=== PATIENT | male | born 1955 | race African-American/Black ===

== ENCOUNTER 2023-08-08 13:38 | Inpatient (IN) | payer MEDICAID, SELFPAY ==
--- NOTE | ~2023-08-08 | XR_ITS ---
EXAMINATION: PORTABLE CHEST 1 VIEW CLINICAL INFORMATION: pre-mri. COMPARISON: 11/19/2016. TECHNIQUE: Portable frontal view of the chest was obtained. FINDINGS: The lungs are hypoexpanded. No focal infiltrate, effusion, edema, or pneumothorax. Cardiac and mediastinal silhouettes are within normal limits for size. Degenerative changes in the spine and shoulders. No acute bony abnormality seen. XR/XR chest 1V IMPRESSION: No evidence of acute disease.
--- NOTE | ~2023-08-08 | CT_ITS ---
EXAMINATION: CT ABDOMEN AND PELVIS WITHOUT AND WITH CONTRAST CLINICAL INFORMATION: Abdominal pain COMPARISON: None available. TECHNIQUE: Multidetector volumetric imaging was performed of the abdomen and pelvis before and after the IV administration of 85 mL of Omnipaque 350 intravenous contrast. Sagittal and coronal reformatted images were obtained on the technologist's workstation. This CT examination was performed using dose optimization techniques as appropriate, variously including the following: *Automated exposure control *Adjustment of mA and/or kV according to patient size (this includes techniques or standardized protocols for targeted exams where dose is matched. FINDINGS: LUNG BASES: The visualized lung bases are unremarkable. LIVER, GALLBLADDER, AND BILIARY TREE: The liver is normal in size, shape, and attenuation. No focal hepatic lesion or biliary ductal dilatation is present. The gallbladder is unremarkable with no evidence of radiopaque gallstones, gallbladder wall thickening, or obvious pericholecystic inflammatory changes. PANCREAS: There is a hypoattenuating lesion along the pancreatic neck measuring 2 cm. This measures 6 Hounsfield units, consistent with a cyst as no enhancement is seen. There is no pancreatic ductal dilatation. No definite additional pancreatic lesions, though motion does limit the evaluation. No convincing solid mass. No adjacent fluid collection or inflammation. SPLEEN: Unremarkable ADRENAL GLANDS: Unremarkable KIDNEYS AND URETERS: The kidneys are normal in size, shape, and attenuation. No hydronephrosis or hydroureter. Multiple bilateral renal calculi. On the right there are at least 4 calculi present measuring up to 0.3 cm at the upper pole, on the left there are 2 dominant calculi, the largest measuring 0.4 cm, 7 cm from the posterior axillary line. BLADDER: Unremarkable GASTROINTESTINAL TRACT: The stomach is unremarkable. Normal caliber small bowel. No obstruction. No colonic wall thickening or acute inflammation. Normal appendix. ABDOMINAL WALL: Small fat-containing left inguinal hernia. LYMPH NODES: Normal VASCULAR: Normal caliber aorta with mild atherosclerotic calcification throughout. There is mild to moderate stenosis at the origin of the celiac axis. PELVIC VISCERA: Enlarged prostate measures 5.5 cm transverse. The seminal vesicles are unremarkable. OSSEOUS STRUCTURES: No acute or suspicious osseous abnormality. Mild degenerative change throughout the spine. Disc space narrowing at L4-L5 with vacuum disc phenomenon and endplate osteophytes present. CT/CT abdomen pelvis wo/w IV con IMPRESSION: Motion limited evaluation. 1. No acute findings in the abdomen or pelvis. No inflammatory changes. 2. 2 cm cystic lesion at the pancreatic neck. No suspicious features. This may represent an IPMN. Recommend follow-up imaging in one year. 3. Multiple bilateral nonobstructing renal calculi. 4. Prostatomegaly. 5. 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 Fleischner guidelines were followed.
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
--- NOTE | ~2023-08-08 | MR_ITS ---
EXAMINATION: MR BRAIN WITH AND WITHOUT CONTRAST CLINICAL INFORMATION: Worsening encephalopathy, ?CADASIL COMPARISON: CT head 08/08/2023 TECHNIQUE: MRI of the brain was obtained using routine sequences before and following administration of intravenous contrast. A total of 7.5 mL of Gadavist was administered intravenously. FINDINGS: No acute infarct. No extra-axial fluid collection. Moderate global cerebral volume loss. There is diffuse thinning and patchy gliosis of the corpus callosum. Extensive patchy and confluent T2 FLAIR hyperintense foci in the subcortical and periventricular white matter with involvement of the anterior temporal lobes and some involvement of the external capsules, nonspecific but and again may reflect sequela of advanced chronic microangiopathy versus small vessel vasculopathy/vasculitis, including CADASIL. There is also mild T2 signal change in the brainstem. Chronic lacunar infarcts in the left cerebellum, right thalamus, and right santana radiata. Several foci of magnetic susceptibility artifact within the right external capsule, left temporal lobe, and right anterior mesial temporal lobe, presumed chronic microhemorrhages. No gross pathologic intracranial enhancement within limitations of significant motion artifact. No significant mass effect or herniation pattern. The intracranial dural venous sinus and arterial flow voids are preserved. The orbits are grossly unremarkable. The paranasal sinuses and mastoids are well aerated. Partially imaged cervical spondylosis. MR/MR head/brain wo/w con IMPRESSION: No acute intracranial process. Extensive predominantly supratentorial white matter disease as described above which may reflect advanced chronic microangiopathy versus small vessel vasculopathy/vasculitis, such as CADASIL given anterior temporal lobe and to a lesser extent external capsule involvement. Other white matter processes, such as chronic demyelinating disease, not excluded and can be correlated clinically. Chronic lacunar infarcts in the left cerebellum, right thalamus, and right santana radiata. Moderate global cerebral volume loss. Diffuse thinning and patchy gliosis of the corpus callosum. A few supratentorial chronic microhemorrhages.
[2023-08-08 15:12] VITALS: BP 120/78; PULSE 83; RESP 16; TEMP 37; O2SAT 97; BMI 25.8
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
[2023-08-08 15:30] VITALS: BP 128/69; PULSE 82; RESP 16; TEMP 36.7; O2SAT 98
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
--- NOTE | 2023-08-08 15:53 | PC.NURSE ---
no obvious trauma noted to face or head on observation. pts appears weak overall, hard time getting changed, flat affect noted. pt placed on bedside monitoring coordinator, NSR. pt denies pain or nausea at this time.
--- NOTE | 2023-08-08 16:24 | PC.NURSE ---
Pt to CT scan
[2023-08-08 17:52] LABS: MANUAL DIFF FLAG NO
[2023-08-08] MEDS: 0.9 % Sodium Chloride 1,000 ML 999 ML IV (17:54)
[2023-08-08 17:57] VITALS: BP 119/70; PULSE 78; RESP 16; TEMP 36.8; O2SAT 98
[2023-08-08 18:07] LABS: Basophils Percent Auto 0.1 % (0-2); Eosinophils Absolute Auto 0.1 X10*3/uL (0.0-0.4); Eosinophils Percent Auto 1.4 % (0-4); Hematocrit 44.8 % (42.0-52.0); Hemoglobin 15.3 g/dl (14.0-18.0); Imm Gran Abs Auto 0.09 X10*3/uL (0.00-0.03); Imm Gran Pct Auto 0.9 % (0.0-0.4); Lymphocytes Absolute Auto 1.6 X10*3/uL (1.2-4.9); Lymphocytes Percent Auto 16.1 % (20-40); Mean Corpuscular HGB Conc 34.2 g/dl (31.0-36.0); Mean Corpuscular Hemoglobin 30.5 pg (27.0-33.0); Mean Corpuscular Volume 89.2 fL (80.0-98.0); Mean Platelet Volume 9.9 fL (9.4-12.4); Monocytes Absolute Auto 0.8 X10*3/uL (0.1-1.2); Monocytes Percent Auto 8.1 % (2-11); Neutrophils Absolute Auto 7.1 x10*3/uL (2.0-8.3); Neutrophils Percent Auto 73.4 % (45-73); Platelet Count 211 X10*3/uL (160-400); Red Blood Count 5.02 X10*6/uL (4.60-5.80); Red Cell Distribution Width 12.3 % (11.0-16.0); White Blood Count 9.7 X10*3/uL (4.8-10.8)
[2023-08-08 18:08] LABS: Ammonia 20 umol/L (13-55)
[2023-08-08 18:10] LABS: Alanine Aminotransferase 55 U/L (0-40); Albumin Level 3.5 g/dL (3.5-5.0); Alkaline Phosphatase 89 U/L (39-117); Anion Gap 13 (12-20); Aspartate Amino Transferase 35 U/L (5-37); Bilirubin Total 0.5 mg/dL (0.0-1.0); Blood Urea Nitrogen 25 mg/dL (9-16); Calcium 9.2 mg/dL (8.4-10.2); Carbon Dioxide 28 mmol/L (22-29); Chloride 97 mmol/L (96-108); Creatinine Clr Calc Pharmacy 67.6; Estimated Glomerular Filt Rate > 60; Glucose Random 225 mg/dL (60-115); Lipase 13 U/L (8-78); Potassium 4.8 mmol/L (3.3-5.1); Sodium 133 mmol/L (135-145)
[2023-08-08 19:32] VITALS: BP 121/64; PULSE 83; RESP 16; TEMP 37.1; O2SAT 97
--- NOTE | 2023-08-08 19:33 | MHC.EDTECH ---
This tech took over care of patient at 1900,hourly rounds and vitals completed,patient was repositioned to comfort,attempted to get a urine and patient is unable to at this time,call murphy in reach
--- NOTE | 2023-08-08 19:58 | MHC.EDTECH ---
Patient was incont.of a large amount of urine,patient was being cleaned and patient voided with the assist of this tech in the urinal,patient voided 300MLS,urine sample collected and sent to lab. Patient was cleaned and hoang-care giving, bed linen was changed,[place] Cath placed due to patient being incot.to keep patient clean and dry,RN is aware. Belonging list completed and copy placed in chart. Call murphy in reach
[2023-08-08 20:08] LABS: Appearance Urine Clear; Color Urine Yellow; Glucose Urine UA 250 mg/dL (Negative); Leukocyte Esterase Urine Negative (Negative); Nitrite Urine Negative (Negative); PH 5.5 (5.0-9.0); Specific Gravity - Urine 1.025 (1.005-1.025); Urine Blood Negative (Negative); Urine Ketones Negative (Negative); Urine Protein Trace mg/dL (Neg-Trace)
--- NOTE | 2023-08-08 21:05 | PHA.MEDREC ---
Pharmacy Consult ? Medication Reconciliation Pharmacy has completed the medication reconciliation. Patient's family had rx bottles from [place]. Melinda Lundberg, MelyD
--- NOTE | 2023-08-08 21:46 | MHC.EDTECH ---
Hourly rounds completed,patient is eating a ham sandwich at this time and daughter at bedside
[2023-08-08] MEDS: 0.9 % Sodium Chloride 1,000 ML 125 ML IVCONT (21:51)
[2023-08-08] MEDS: Thiamine HCL 100 MG in 0.9 % Sodium Chloride 100 ML 202 MG IV (21:54)
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
[2023-08-08 22:09] VITALS: BP 135/69; PULSE 84; RESP 18; TEMP 37.5; O2SAT 96
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
[2023-08-08 23:25] VITALS: BP 119/63; PULSE 81; RESP 18; TEMP 37.4; O2SAT 96
--- NOTE | 2023-08-08 23:26 | PC.NURSE ---
assumed care of pt
--- NOTE | 2023-08-08 23:26 | MHC.EDTECH ---
Patient took [place] cath off and was incot. of a large amount of urine,and a large amount of soft brown stool,patient was cleaned,hoang-care giving and bed linen changed. Hourly rounds and vitals completed. Call murphy in reach
[2023-08-09 01:57] VITALS: BP 135/73; PULSE 76; RESP 16; TEMP 37.3; O2SAT 96
--- NOTE | 2023-08-09 02:13 | MHC.EDTECH ---
Patient was incont. of a large amount of urine,cleaned and hoang-care giving, this tech saw 2 open areas on bottom,RN was at bedside and dressing was applied to area.Patient repositioned to comfort, hourly rounds and vitals completed. Call murphy in reach
--- NOTE | 2023-08-09 04:08 | MHC.EDTECH ---
Hourly rounds completed,patient is clean and dry at this time.
[2023-08-09 04:57] LABS: MANUAL DIFF FLAG NO
[2023-08-09 05:07] LABS: Basophils Percent Auto 0.2 % (0-2); Eosinophils Absolute Auto 0.2 X10*3/uL (0.0-0.4); Hematocrit 40.2 % (42.0-52.0); Hemoglobin 13.6 g/dl (14.0-18.0); Imm Gran Abs Auto 0.02 X10*3/uL (0.00-0.03); Imm Gran Pct Auto 0.2 % (0.0-0.4); Lymphocytes Absolute Auto 1.7 X10*3/uL (1.2-4.9); Lymphocytes Percent Auto 19.2 % (20-40); Mean Corpuscular HGB Conc 33.8 g/dl (31.0-36.0); Mean Corpuscular Hemoglobin 30.2 pg (27.0-33.0); Mean Corpuscular Volume 89.3 fL (80.0-98.0); Mean Platelet Volume 10.3 fL (9.4-12.4); Monocytes Absolute Auto 0.8 X10*3/uL (0.1-1.2); Monocytes Percent Auto 9.2 % (2-11); Neutrophils Absolute Auto 6.1 x10*3/uL (2.0-8.3); Neutrophils Percent Auto 69.2 % (45-73); Platelet Count 194 X10*3/uL (160-400); Red Cell Distribution Width 12.1 % (11.0-16.0); White Blood Count 8.8 X10*3/uL (4.8-10.8)
[2023-08-09 05:20] LABS: Cholesterol 145 mg/dL (<200); HDL Cholesterol 31 mg/dL (>40); LDL Cholesterol Calculated 92 mg/dL (<100); Triglycerides 111 mg/dL (<150)
[2023-08-09 05:24] LABS: Alanine Aminotransferase 45 U/L (0-40); Albumin Level 3.1 g/dL (3.5-5.0); Alkaline Phosphatase 76 U/L (39-117); Anion Gap 11 (12-20); Aspartate Amino Transferase 29 U/L (5-37); Bilirubin Total 0.4 mg/dL (0.0-1.0); Blood Urea Nitrogen 21 mg/dL (9-16); Calcium 8.5 mg/dL (8.4-10.2); Carbon Dioxide 24 mmol/L (22-29); Chloride 103 mmol/L (96-108); Estimated Glomerular Filt Rate > 60; Glucose Random 182 mg/dL (60-115); Potassium 3.9 mmol/L (3.3-5.1); Sodium 134 mmol/L (135-145); Total Protein 6.1 g/dL (6.5-8.0)
[2023-08-09 05:27] LABS: Reflex LDLD? No
[2023-08-09 06:10] VITALS: BP 148/86; PULSE 73; RESP 18; TEMP 37.2; O2SAT 97
--- NOTE | 2023-08-09 06:12 | MHC.EDTECH ---
Hourly rounds and vitals completed,patient was incont. of a large amount of urine and a small amount of stool,patient was cleaned and hoang-care giving.call murphy in reach
--- NOTE | 2023-08-09 08:07 | P.CNHO_ITS ---
Subjective - Subjective Chief complaint: Leg pains Patient: new to practice Consult date: 08/09/23 Requesting Physician: Neema Ponce NP Primary Care Provider: None Physician HPI - Consult Narrative Reason for consult: Pancreatic lesion Narrative: Edmundo Chan is a 68 year old male who has been admitted to the hospital because of confusion and abnormal imaging in [place]. certified court interpreter was used for the interview, 2 family members were at his bedside. Patient was brought in by family members because progressive weakness, confusion and poor oral intake. Patient is able to answer some questions. He states that his only complaint is chronic leg pain. When specifically asked, he states that he has lost some weight. Apparently, patient was admitted to a hospital in [place] on 07/11/2023. At that time, he underwent a head CT and C-spine CT scan that showed no acute findings. 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 He was eventually discharged and was recommended to follow with primary care doctor an outpatient abdominal MRI for better characterization of the cystic lesion. He was hospitalized for about a month. Oncology Screenings - ECOG Performance Status ECOG Performance Status: 3 [facility] Medical History: Medical History (Last Reviewed 08/09/23 @ 11:15 by Mariajose Shankar, PT) BPH (benign prostatic hyperplasia) Dementia Diabetes mellitus Hypertension Pancreatic cancer Pancreatic lesion Surgical History: Surgical History (Last Reviewed 08/09/23 @ 11:15 by Mariajose Shankar, PT) History of hernia repair S/P right knee arthroscopy Social History: Social History Living Situation History: Household Members: Family Alcohol History: Unable to assess alcohol history related to: Unknown Tobacco History: Patient Tobacco Use Status: Tobacco use Unknown Occupation Assessmet: service: No Home Medications and Allergies Current Medications: Current Medications Acetaminophen (Acetaminophen 325 Mg Tablet) 650 mg PO Q6H PRN PRN Reason: Pain, Mild (Pain Scale 1-3) Aspirin (Aspirin 81 Mg Tab.Chew) 81 mg PO DAILY [facility] Atorvastatin Calcium (Atorvastatin Calcium 10 Mg Tablet) 10 mg PO DAILY [facility] Clopidogrel Bisulfate (Clopidogrel Bisulfate 75 Mg Tablet) 75 mg PO DAILY [facility] Dextrose (Dextrose 50 % 25 Gm/50 Ml Syringe) 25 gm IVPUSH Q15M PRN; Protocol PRN Reason: per Hypoglycemia Standing Ord. Glipizide (Glipizide 10 Mg Tablet) 10 mg PO BID [facility] Glucose (Glucose Gel 15 Gm Gel..Gram.) 15 gm PO Q15M PRN; Protocol PRN Reason: per Hypoglycemia Standing Ord. Heparin Sodium (Porcine) (Heparin Sodium,Porcine 5,000 Unit/Ml Vial) 5,000 unit SUBCUT Q8H [facility] Sodium Chloride (Ns) 1,000 mls @ 125 mls/hr IVCONT .Q8H [facility] Last Admin: 08/09/23 06:14 Dose: Not Given Insulin Human Lispro (Insulin Lispro 100 Unit/Ml 3 Ml Vial) 0 unit SUBCUT QIDACHS [facility]; Protocol Lisinopril (Lisinopril 10 Mg Tablet) 10 mg PO DAILY [facility]; Protocol Sodium Chloride (0.9 % Sodium Chloride Flush 3 Ml Syringe) 3 ml IVFLUSH QSHIFT [facility] Last Admin: 08/09/23 00:08 Dose: Not Given Tamsulosin HCl (Tamsulosin Hcl 0.4 Mg Capsule) 0.4 mg PO BEDTIME [facility] Home Medications Medication Instructions Recorded Confirmed Type aspirin 81 mg chewable tablet 81 mg PO DAILY 08/08/23 08/08/23 History atorvastatin 10 mg tablet 10 mg PO DAILY 08/08/23 08/08/23 History clopidogrel 75 mg tablet (Plavix) 75 mg PO DAILY 08/08/23 08/08/23 History glipizide 10 mg tablet 10 mg PO BID 08/08/23 08/08/23 History lisinopril 10 mg tablet 10 mg PO DAILY 08/08/23 08/08/23 History pioglitazone 15 mg tablet (Actos) 15 mg PO DAILY 08/08/23 08/08/23 History tamsulosin 0.4 mg capsule 0.4 mg PO BEDTIME 08/08/23 08/08/23 History Allergies Allergy/AdvReac Type Severity Reaction Status Date / Time No Known Allergies Allergy Verified 08/08/23 15:12 Physical Exam Vital signs: Vital Signs Temp 98.9 F 08/09/23 06:10 Pulse 73 08/09/23 06:10 Resp 18 08/09/23 06:10 BP 148/86 H 08/09/23 06:10 Pulse Ox 97 08/09/23 06:10 O2 Del Method Room Air 08/09/23 06:10 Intake & Output 08/08/23 08/09/23 08/09/23 18:59 06:59 18:59 Intake Total 1221 / 1221 Output Total Balance 1220 / 1220 Intake: Intake, Oral Amount 120 / 120 Intake, IV Amount 1101 / 1101 0.9 % Sodium Chloride 1,000 ml 1000 / 1000 @ 999 mls/hr IV .Q1H1M ONE Rx#: [id number] Thiamine HCL 100 mg In 0.9 % 101 / 101 Sodium Chloride 100 ml @ 202 mls/hr IV ONCE ONE Rx#: [id number] Output: Output, Stool Amount Other: Evening Snack % Eaten 100 Number of Incontinent Voids 2 Number of Bowel Movements 1 Last Bowel Movement 08/08/23 Stool Incontinent Stool Amount Small Stool Color Brown Stool Consistency Soft Weight 79.379 kg Weight 79.379 kg - Constitutional Present: no acute distress, thin - Routine HEENT Exam Head: Present: normal inspection Eye: Present: EOMI - Routine Neck Exam Absent: lymphadenopathy - Routine Respiratory Exam Present: CTAB - Routine Cardiovascular Exam Cardiovascular: Present: S1, S2 - Routine Abdominal Exam Present: soft Hem/Onc Consult Result - Labs CBC & Chem 7: 08/09/23 04:11 08/09/23 04:11 Labs: Short CBC 08/08/23 08/09/23 Range/Units 17:03 04:11 WBC 9.7 8.8 (4.8-10.8) X10*3/uL Hgb 15.3 13.6 L (14.0-18.0) g/dl Hct 44.8 40.2 L (42.0-52.0) % Plt Count 211 194 (160-400) X10*3/uL BMP 08/08/23 08/09/23 17:06 04:11 Sodium 133 L 134 L Potassium 4.8 3.9 Chloride 97 103 Carbon Dioxide 28 24 BUN 25 H 21 H Creatinine 1.03 0.82 Calcium 9.2 8.5 D Liver Function 08/08/23 08/09/23 Range/Units 17:06 04:11 Total Bilirubin 0.5 0.4 (0.0-1.0) mg/dL AST 35 29 (5-37) U/L ALT 55 H 45 H (0-40) U/L Alkaline Phosphatase 89 76 (39-117) U/L Albumin 3.5 3.1 L (3.5-5.0) g/dL Urine 08/08/23 Range/Units 19:50 Urine Color Yellow Urine Appearance Clear Urine pH 5.5 (5.0-9.0) Ur Specific [place] 1.025 (1.005-1.025) Urine Protein Trace (Neg-Trace) mg/dL Urine Glucose (UA) 250 H (Negative) mg/dL Assessment and Plan Patient Active problem list reviewed?: Yes (1) Pancreatic lesion Status: Acute Assessment and plan: 1. This is a 68-year-old male who was admitted for mental status changes and found to have pancreatic lesion on imaging. He has had abdominal CT scan in [place] that showed incidentally a cystic lesion in the pancreatic head favoring intraductal papillary mucinous neoplasm (IPMN). He was eventually discharged and was recommended to follow with primary care doctor an outpatient, abdominal MRI for better characterization of the cystic lesion. He was hospitalized for about a month. He is now being evaluated for confusion and memory loss. CT abdomen/pelvis with contrast performed on 08/09/2023, report is pending. If this confirms IPMN, this can be monitored. Further evaluation with EUS can be done as outpatient. I thank you for the consult. - Time Spent With Patient Time Spent with Patient (in minutes): 15
[2023-08-09 08:11] LABS: Glucose, Whole Blood 152 mg/dL (60-115)
[2023-08-09 08:28] VITALS: BP 151/78; PULSE 76; RESP 16; TEMP 37.2; O2SAT 98
[2023-08-09 08:33] LABS: Glucose, Whole Blood 152 mg/dL (60-115)
[2023-08-09] MEDS: Aspirin 81 MG TAB.CHEW PO (09:07)
[2023-08-09] MEDS: Clopidogrel Bisulfate 75 MG TABLET PO (09:07)
[2023-08-09] MEDS: Atorvastatin Calcium 10 MG TABLET PO (09:07)
[2023-08-09] MEDS: Insulin Lispro 100 UNIT/ML 3 ML VIAL SUBCUT ×3 (09:07→21:32)
[2023-08-09] MEDS: Heparin Sodium,Porcine 5,000 UNIT/ML VIAL 5000 UNIT SUBCUT ×2 (09:08→17:13)
[2023-08-09] MEDS: lisinopriL 10 MG TABLET PO (09:08)
[2023-08-09] MEDS: 0.9 % Sodium Chloride Flush 3 ML SYRINGE IVFLUSH ×2 (09:08→21:35)
[2023-08-09 09:48] LABS: Lipase 14 U/L (8-78)
[2023-08-09 10:01] VITALS: BP 123/70; PULSE 78; RESP 16; TEMP 36.7; O2SAT 98
--- NOTE | 2023-08-09 10:28 | HO.WOUND ---
Wound Consult: Initial 68yr old?M admitted to [facility] [place] - See progress notes and H&P for detailed history.? Wound consult placed for sacral wound POA.? Patient agreeable to assessment and photo documentation. Per discussion and chart review patient was wearing briefs for period of time - likely impacting wound development. Sacrum Etiology: Unstageable Pressure Injury ??Present on Admission Measurements: 2cm x 2cm x 0.2cm with intact skin bridge inplace Wound Bed: adherent pale yellow slough attached to wound bed with granulation buds noted Drainage / Odor: None noted at the time of my assessment Edges: ? well defined [place] wound: Dark blanchable hyperpigmentation - along wiht MARSI (Medical Adhesive Related Skin Injury)?see photo - No Induration, Fluctuance or Warmth noted Pain: did not respond to assessment Goals of Treatment: ? Triad to autolytic debridement and foam to aid in off loading and pressure redistribution Recommendations: 1. Turn and Reposition every 2 hours and as needed for patient comfort.? Use pillows or wedges to support off loading positions. 2. Off Load all bony prominences with use of pillows and heel boots if needed.? Apply Preventative foams where needed. ? 3. Monitor for incontinence and moisture control, use barrier creams when needed for prevention and treatment. 4. Provide adequate and supplemental nutrition.? 5. Order or Continue low air loss mattress. 6. When applicable maintain blood glucose levels per Providers order. 7. Sacrum - Off Load Pressure - Cleanse with PH balance spray or wipes, pat dry. ?Apply thin layer of Triad to wound bed. Do not scrub and rub at Triad that remains after cleansing. Cover with foam dressing to aid in off loading and protection from friction. Re-consult wound care Nurse for wound deterioration or wound changes.
[2023-08-09 10:31] VITALS: BMI 26.0
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
[2023-08-09] MEDS: 0.9 % Sodium Chloride 1,000 ML 125 ML IVCONT ×2 (11:12→17:39)
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
[2023-08-09 11:37] LABS: Glucose, Whole Blood 157 mg/dL (60-115)
[2023-08-09] MEDS: iohexoL 350 MG/ML 100 ML INFUS..BTL 85 ML IV (13:31)
[2023-08-09 14:46] VITALS: BMI 26.0
--- NOTE | 2023-08-09 14:49 | MHC.CLN ---
RE: CONSULT PT WITH INCREASED NUTRITION RISK R/T PRESSURE INJURY PO INTAKE [facility] DIET RX: 1800DM-RECOMMEND 2200DM TO MEET ESTIMATED NEEDS RECOMMEND ADDING ENSURE MAX BID TO PROMOTE WOUND HEALING SUPP TO PROVIDE 300KCALS, 60G PROTEIN MONITOR PO INTAKE AND ENCOURAGE SUPPLEMENTS SEE ALSO FULL CLINICAL NUTRITION ASSESSMENT
--- NOTE | 2023-08-09 15:04 | P.CNPS_ITS ---
History of Present Illness Date of Service: 08/09/23 Chief Complaint: Pancreatic Mass Reason for Consult: Capacity Requesting physician: Neema Ponce Discussed with referring provider: Yes Sources of Information: patient interviewed and chart reviewed HPI Narrative: Patient is a 68-year-old male who was admitted with confusion and abdominal pain history. Came from [place] less than a week ago after family took him here, daughter reported he was not being cared for properly in [place]. Consult was placed to psychiatry for ? of capacity. Patient is English speaking only, So Schmitt NP translated. T/W and So Schmitt NP assessed patient; pt is alert and oriented to self only; not oriented to situation, month or year. He was unable to state where he was or why he was in the hospital; pt stated he was at a place called, [facility] . Patient denied any depressive symptoms; he would repeat back sentences. When asked if at any point he is unable to make decision for himself, does he have someone who he would like to do so, pt stated, No. Past Psychiatric History: unable to assess d/t mental status. Medical Evaluation Reviewed: Yes [facility] Medical History BPH (benign prostatic hyperplasia) Pancreatic lesion Dementia Pancreatic cancer Hypertension Diabetes mellitus Surgical History History of hernia repair S/P right knee arthroscopy Family History: unable to assess d/t mental status. Social History: unable to assess d/t mental status. Substance History: unable to assess d/t mental status. Trauma History: unable to assess d/t mental status. Diagnostics Vital Signs (24Hr): Vital Signs - 24 hr 08/08/23 15:12 08/08/23 15:30 08/08/23 17:57 Temperature 98.6 F 98.0 F 98.3 F Pulse Rate 83 82 78 Respiratory Rate 16 16 16 Blood Pressure 120/78 128/69 119/70 Pulse Oximetry 97 98 98 Oxygen Delivery Method Room Air Room Air Room Air 08/08/23 19:32 08/08/23 22:09 08/08/23 23:25 Temperature 98.8 F 99.5 F 99.3 F Pulse Rate 83 84 81 Respiratory Rate 16 18 18 Blood Pressure 121/64 135/69 119/63 Pulse Oximetry 97 96 96 Oxygen Delivery Method Room Air Room Air Room Air 08/09/23 01:57 08/09/23 06:10 08/09/23 08:28 Temperature 99.1 F 98.9 F 99.0 F Pulse Rate 76 73 76 Respiratory Rate 16 18 16 Blood Pressure 135/73 148/86 H 151/78 H Pulse Oximetry 96 97 98 Oxygen Delivery Method Room Air Room Air Room Air 08/09/23 10:01 Temperature 98.1 F Pulse Rate 78 Respiratory Rate 16 Blood Pressure 123/70 Pulse Oximetry 98 Oxygen Delivery Method Room Air BMI result Body Mass Index 26.0 Labs 08/09/23 04:11 08/09/23 04:11 Labs: Laboratory Results - last 48 hr 08/08/23 08/08/23 08/08/23 17:03 17:06 19:50 WBC 9.7 RBC 5.02 Hgb 15.3 Hct 44.8 MCV 89.2 MCH 30.5 MCHC 34.2 RDW 12.3 Plt Count 211 MPV 9.9 Immature Gran % (Auto) 0.9 H Neut % (Auto) 73.4 H Lymph % (Auto) 16.1 L [place] % (Auto) 8.1 Eos % (Auto) 1.4 Baso % (Auto) 0.1 Lymph # (Auto) 1.6 [place] # (Auto) 0.8 Eos # (Auto) 0.1 Baso # (Auto) 0.0 Abs Immat Gran (auto) 0.09 H Absolute Neuts (auto) 7.1 Absolute Nucleated RBC 0.000 Nucleated RBC % (auto) 0.0 Sodium 133 L Potassium 4.8 Chloride 97 Carbon Dioxide 28 Anion Gap 13 BUN 25 H Creatinine 1.03 Estim Creat Clear Calc 67.6 Estimated GFR > 60 POC Glucose Random Glucose 225 H Calcium 9.2 Total Bilirubin 0.5 AST 35 ALT 55 H Alkaline Phosphatase 89 Ammonia 20 Total Protein 7.0 Albumin 3.5 Triglycerides Cholesterol LDL Cholesterol, Calc HDL Cholesterol Lipase 13 TSH 1.30 Urine Color Yellow Urine Appearance Clear Urine pH 5.5 Ur Specific [place] 1.025 Urine Protein Trace Urine Glucose (UA) 250 H Urine Ketones Negative Urine Blood Negative Urine Nitrite Negative Ur Leukocyte Esterase Negative 08/09/23 08/09/23 08/09/23 04:11 08:06 08:27 WBC 8.8 RBC 4.50 L Hgb 13.6 L Hct 40.2 L MCV 89.3 MCH 30.2 MCHC 33.8 RDW 12.1 Plt Count 194 MPV 10.3 Immature Gran % (Auto) 0.2 Neut % (Auto) 69.2 Lymph % (Auto) 19.2 L [place] % (Auto) 9.2 Eos % (Auto) 2.0 Baso % (Auto) 0.2 Lymph # (Auto) 1.7 [place] # (Auto) 0.8 Eos # (Auto) 0.2 Baso # (Auto) 0.0 Abs Immat Gran (auto) 0.02 Absolute Neuts (auto) 6.1 Absolute Nucleated RBC 0.000 Nucleated RBC % (auto) 0.0 Sodium 134 L Potassium 3.9 Chloride 103 Carbon Dioxide 24 Anion Gap 11 L BUN 21 H Creatinine 0.82 Estim Creat Clear Calc 85.0 Estimated GFR > 60 POC Glucose 152 H 152 H Random Glucose 182 H Calcium 8.5 D Total Bilirubin 0.4 AST 29 ALT 45 H Alkaline Phosphatase 76 Ammonia Total Protein 6.1 L Albumin 3.1 L Triglycerides 111 Cholesterol 145 LDL Cholesterol, Calc 92 HDL Cholesterol 31 L Lipase TSH Urine Color Urine Appearance Urine pH Ur Specific [place] Urine Protein Urine Glucose (UA) Urine Ketones Urine Blood Urine Nitrite Ur Leukocyte Esterase 08/09/23 08/09/23 09:20 11:33 WBC RBC Hgb Hct MCV MCH MCHC RDW Plt Count MPV Immature Gran % (Auto) Neut % (Auto) Lymph % (Auto) [place] % (Auto) Eos % (Auto) Baso % (Auto) Lymph # (Auto) [place] # (Auto) Eos # (Auto) Baso # (Auto) Abs Immat Gran (auto) Absolute Neuts (auto) Absolute Nucleated RBC Nucleated RBC % (auto) Sodium Potassium Chloride Carbon Dioxide Anion Gap BUN Creatinine Estim Creat Clear Calc Estimated GFR POC Glucose 157 H Random Glucose Calcium Total Bilirubin AST ALT Alkaline Phosphatase Ammonia Total Protein Albumin Triglycerides Cholesterol LDL Cholesterol, Calc HDL Cholesterol Lipase 14 TSH Urine Color Urine Appearance Urine pH Ur Specific [place] Urine Protein Urine Glucose (UA) Urine Ketones Urine Blood Urine Nitrite Ur Leukocyte Esterase Imaging Radiology Impressions: ITS Impressions Cervical Spine CT 08/08/23 16:23 IMPRESSION: Head: There is relatively confluent white matter disease primarily involving the periventricular white matter with involvement of the anterior temporal poles. Although these findings may simply represent a manifestation of chronic small vessel ischemia, the possibility of other leukoencephalopathies such as CADASIL is difficult to exclude given the temporal lobe involvement. A brain MRI without and with contrast is therefore recommended for better anatomic characterization of the intracranial anatomy. A small age indeterminate lacunar infarct within the left cerebellar hemisphere is noted. No acute intracranial hemorrhage. Cervical Spine: No evidence of acute fracture and no posttraumatic spinal subluxation. There is advanced multilevel degenerative spondylosis of the cervical spine with at least mild canal stenosis at levels of C3-C4 and C4-C5. If there are clinical symptoms of compressive myelopathy then a dedicated cervical spine MRI can be obtained for better anatomic characterization of the cord and canal. Head CT 08/08/23 16:23 IMPRESSION: Head: There is relatively confluent white matter disease primarily involving the periventricular white matter with involvement of the anterior temporal poles. Although these findings may simply represent a manifestation of chronic small vessel ischemia, the possibility of other leukoencephalopathies such as CADASIL is difficult to exclude given the temporal lobe involvement. A brain MRI without and with contrast is therefore recommended for better anatomic characterization of the intracranial anatomy. A small age indeterminate lacunar infarct within the left cerebellar hemisphere is noted. No acute intracranial hemorrhage. Cervical Spine: No evidence of acute fracture and no posttraumatic spinal subluxation. There is advanced multilevel degenerative spondylosis of the cervical spine with at least mild canal stenosis at levels of C3-C4 and C4-C5. If there are clinical symptoms of compressive myelopathy then a dedicated cervical spine MRI can be obtained for better anatomic characterization of the cord and canal. Mental Status Exam Mental Status Exam Patient Appearance: Disheveled Patient Orientation: Person Level of Consciousness: Awake Patient Behavior: Confused Mood Description: Calm Affect Description: Calm Speech Pattern: Clear Thought Process: Confusion Medications Medications Current Medications Acetaminophen (Acetaminophen 325 Mg Tablet) 650 mg PO Q6H PRN PRN Reason: Pain, Mild (Pain Scale 1-3) Aspirin (Aspirin 81 Mg Tab.Chew) 81 mg PO DAILY [facility] Last Admin: 08/09/23 09:07 Dose: 81 mg Atorvastatin Calcium (Atorvastatin Calcium 10 Mg Tablet) 10 mg PO DAILY [facility] Last Admin: 08/09/23 09:07 Dose: 10 mg Clopidogrel Bisulfate (Clopidogrel Bisulfate 75 Mg Tablet) 75 mg PO DAILY [facility] Last Admin: 08/09/23 09:07 Dose: 75 mg Dextrose (Dextrose 50 % 25 Gm/50 Ml Syringe) 25 gm IVPUSH Q15M PRN; Protocol PRN Reason: per Hypoglycemia Standing Ord. Glipizide (Glipizide 10 Mg Tablet) 10 mg PO BID [facility] Last Admin: 08/09/23 09:59 Dose: Not Given Glucose (Glucose Gel 15 Gm Gel..Gram.) 15 gm PO Q15M PRN; Protocol PRN Reason: per Hypoglycemia Standing Ord. Heparin Sodium (Porcine) (Heparin Sodium,Porcine 5,000 Unit/Ml Vial) 5,000 unit SUBCUT Q8H [facility] Last Admin: 08/09/23 09:08 Dose: 5,000 unit Sodium Chloride (Ns) 1,000 mls @ 125 mls/hr IVCONT .Q8H [facility] Last Admin: 08/09/23 11:12 Dose: 125 mls/hr Insulin Human Lispro (Insulin Lispro 100 Unit/Ml 3 Ml Vial) 0 unit SUBCUT QIDACHS [facility]; Protocol Last Admin: 08/09/23 11:51 Dose: Not Given Lisinopril (Lisinopril 10 Mg Tablet) 10 mg PO DAILY [facility]; Protocol Last Admin: 08/09/23 09:08 Dose: 10 mg Sodium Chloride (0.9 % Sodium Chloride Flush 3 Ml Syringe) 3 ml IVFLUSH QSHIFT [facility] Last Admin: 08/09/23 09:08 Dose: 3 ml Tamsulosin HCl (Tamsulosin Hcl 0.4 Mg Capsule) 0.4 mg PO BEDTIME [facility] Allergies Allergies Allergy/AdvReac Type Severity Reaction Status Date / Time No Known Allergies Allergy Verified 08/08/23 15:12 Assessment & Plan Assessment & Plan (1) Confusional state: Status: Acute Code(s): 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 of capacity. Patient is English speaking only, So Schmitt NP translated. T/W and So Schmitt NP assessed patient; pt is alert and oriented to self only; not oriented to situation, month or year. He was unable to state where he was or why he was in the hospital; pt stated he was at a place called, [facility] . Patient denied any depressive symptoms; he would repeat back sentences. When asked if at any point he is unable to make decision for himself, does he have someone who he would like to do so, pt stated, No. After assessment, patient does not have capacity to make medical decisions at this time. Total time managing care of this patient today _20___ minutes. Patient educated on: other (unable to educate d/t mental status.)
[2023-08-09 15:36] VITALS: BP 126/63; PULSE 70; RESP 18; TEMP 36.4; O2SAT 97
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
[2023-08-09 16:47] LABS: Glucose, Whole Blood 193 mg/dL (60-115)
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
[2023-08-09 19:17] VITALS: BP 124/61; PULSE 75; RESP 18; TEMP 36.6; O2SAT 98
[2023-08-09 19:55] LABS: Glucose, Whole Blood 163 mg/dL (60-115)
[2023-08-09] MEDS: diazePAM 10 MG/2 ML CARTRIDGE 3 MG IVPUSH (21:00)
[2023-08-09] MEDS: gadobutroL 7.5 ML VIAL IVPUSH (21:20)
[2023-08-09] MEDS: glipiZIDE 10 MG TABLET PO (21:32)
[2023-08-09] MEDS: Tamsulosin HCL 0.4 MG CAPSULE PO (21:32)
--- NOTE | 2023-08-09 22:12 | PC.NURSE ---
Pt was seen on bed alert and confused, Haitian speaking only, WARD MAID who is Haitian speaking in to help interpret, cost recovery technician called at 1999, pt sent to MRI with transportation attendant. cost recovery technician called claimed pt is restless, Dr. Ryan Greenberg ordered Valium 3 mg IV, med given, pt was able to stay still and was able to complete MRI, pt transported back to bed alert, meds taken.
[2023-08-10] MEDS: Heparin Sodium,Porcine 5,000 UNIT/ML VIAL 5000 UNIT SUBCUT ×4 (00:36→23:59)
[2023-08-10] MEDS: 0.9 % Sodium Chloride 1,000 ML 125 ML IVCONT ×3 (02:13→16:28)
[2023-08-10 04:00] VITALS: BP 137/70; PULSE 71; RESP 16; TEMP 36.3; O2SAT 99
[2023-08-10 06:46] VITALS: BP 150/72; PULSE 80; RESP 17; TEMP 36.6; O2SAT 99
[2023-08-10 07:02] LABS: Glucose, Whole Blood 62 mg/dL (60-115)
[2023-08-10 07:16] LABS: Glucose, Whole Blood 71 mg/dL (60-115)
[2023-08-10] MEDS: Aspirin 81 MG TAB.CHEW PO (07:48)
[2023-08-10] MEDS: lisinopriL 10 MG TABLET PO (07:48)
[2023-08-10] MEDS: Atorvastatin Calcium 10 MG TABLET PO (07:48)
[2023-08-10] MEDS: Clopidogrel Bisulfate 75 MG TABLET PO (07:48)
[2023-08-10 11:29] LABS: Glucose, Whole Blood 238 mg/dL (60-115)
[2023-08-10] MEDS: Insulin Lispro 100 UNIT/ML 3 ML VIAL SUBCUT ×3 (12:01→21:24)
--- NOTE | 2023-08-10 13:11 | MHC.CLN ---
F/U DIET= DIABETIC 2200 KCALS. ENSURE MAX BID (300 KCALS , 60 G PROTEIN) TO PROMOTE WOUND HEALING. UNSTAGEABLE AREA ON SACRUM. PO INTAKE 50-100%. MONITOR PO INTAKE AND ENCOURAGE SUPPLEMENTS.
--- NOTE | 2023-08-10 14:10 | MHC.CM.PN ---
Psych deemed patient competent to appoint a HCP. The patient appointed his and 2 dtrs. The patient was not able to sign himself. Contact info for the is not available at this time. The HCP has been scanned into the EMR. Met with pts dtr re dc plan. She was instructed to schedule an appointment at [address] for a new PCP. A referral has been sent to [facility] for options insurance account representative consult. DP home with family assist and services once patient has seen his new PCP.
[2023-08-10 15:10] VITALS: BP 147/70; PULSE 82; RESP 18; TEMP 36.6; O2SAT 96
--- NOTE | 2023-08-10 15:33 | P.PNIM_ITS ---
Subjective Subjective Date of Service: 08/10/23 Interval History: No acute issues overnight. Remains pleasantly confused Review of Systems Unable to obtain Physical Exam 2 Vital Signs: Vital Signs: Last Vital Signs Temp 97.9 F 08/10/23 15:10 Pulse 82 08/10/23 15:10 Resp 18 08/10/23 15:10 BP 147/70 H 08/10/23 15:10 Pulse Ox 96 08/10/23 15:10 O2 Del Method Room Air 08/10/23 15:10 BMI result Body Mass Index 26.0 Const: Other: Awake alert no acute distress Resp: Other: Clear to auscultation bilaterally no rales rhonchi or wheezes Cardio: Other: No S4; positive S1-S2; no S3 murmurs rubs or gallops GI: Other: Soft nontender nondistended normoactive bowel sounds Extrem: Other: No edema bilaterally Objective Data Active Medications Acetaminophen (Acetaminophen 325 Mg Tablet) 650 mg PO Q6H PRN PRN Reason: Pain, Mild (Pain Scale 1-3) Aspirin (Aspirin 81 Mg Tab.Chew) 81 mg PO DAILY [facility]PLAC[facility] BY [facility] Last Admin: 08/10/23 07:48 Dose: 81 mg Documented By: COTEMA Atorvastatin Calcium (Atorvastatin Calcium 10 Mg Tablet) 10 mg PO DAILY [facility] Last Admin: 08/10/23 07:48 Dose: 10 mg Documented By: COTEMA Clopidogrel Bisulfate (Clopidogrel Bisulfate 75 Mg Tablet) 75 mg PO DAILY [facility] Last Admin: 08/10/23 07:48 Dose: 75 mg Documented By: COTEMA Dextrose (Dextrose 50 % 25 Gm/50 Ml Syringe) 25 gm IVPUSH Q15M PRN; Protocol PRN Reason: per Hypoglycemia Standing Ord. Glipizide (Glipizide 10 Mg Tablet) 10 mg PO BID [facility] Last Admin: 08/10/23 07:08 Dose: Not Given Documented By: COTEMA Non-Admin Reason: low BG Glucose (Glucose Gel 15 Gm Gel..Gram.) 15 gm PO Q15M PRN; Protocol PRN Reason: per Hypoglycemia Standing Ord. Heparin Sodium (Porcine) (Heparin Sodium,Porcine 5,000 Unit/Ml Vial) 5,000 unit SUBCUT Q8H [facility]PL[facility] Last Admin: 08/10/23 07:48 Dose: 5,000 unit Documented By: COTEMA Sodium Chloride (Ns) 1,000 mls @ 125 mls/hr IVCONT .Q8H REPLACED BY [facility] Last Admin: 08/10/23 09:07 Dose: 125 mls/hr Documented By: SHERLYN Insulin Human Lispro (Insulin Lispro 100 Unit/Ml 3 Ml Vial) 0 unit SUBCUT QIDACHS REPLACED BY [facility]; Protocol Last Admin: 08/10/23 12:01 Dose: 4 unit Documented By: SHERLYN Lisinopril (Lisinopril 10 Mg Tablet) 10 mg PO DAILY [facility]; Protocol Last Admin: 08/10/23 07:48 Dose: 10 mg Documented By: SHERLYN Sodium Chloride (0.9 % Sodium Chloride Flush 3 Ml Syringe) 3 ml IVFLUSH QSHIFT REPLACED BY [facility] Last Admin: 08/10/23 13:28 Dose: Not Given Documented By: SHERLYN Non-Admin Reason: IV Running Tamsulosin HCl (Tamsulosin Hcl 0.4 Mg Capsule) 0.4 mg PO BEDTIME REPLACED [facility] Last Admin: 08/09/23 21:32 Dose: 0.4 mg Documented By: JOSE CRUZ Labs 08/09/23 04:11 08/09/23 04:11 Labs: Laboratory Results - last 24 hr 08/09/23 08/09/23 08/10/23 16:44 19:50 06:59 POC Glucose 193 H 163 H 62 08/10/23 08/10/23 07:14 11:26 POC Glucose 71 238 H Assessment and Plan (1) Dementia: Status: Acute (2) Mass of pancreas: Status: Acute Plan 68-year-old man admitted with confusion and abdominal pain history. Came from [place] less than a week ago after family took him here, daughter reported he was not being cared for properly in [place]. 1.Encephalopathy -likely dementia with question of CADASIL -Neuro consultation appreciated -Supportive care 2.Pancreatic cystic lesion -Incidental findings on abdominal and pelvic CT from [place] -await formal CT read -further management based on forthcoming results 3.Diabetes mellitus type 2 -acceptable control on current therapies -lispro correctional scale -adjust as indicated 4.Hypertension -acceptable control on current therapies -adjust as indicated Heparin Full code Continue hospitalization for treatment of encephalopathy and pancreatic mass requiring diagnostic imaging and specialty consultation. Quality Stroke Does the patient have a stroke diagnosis?: No VTE Prior VTE?: No VTE Risk Level:: Medical - moderate - high VTE Device Contraindication: Treatment Not Indicated VTE Drug Contraindication: N/A - Med Ordered
[2023-08-10 16:10] LABS: Glucose, Whole Blood 160 mg/dL (60-115)
[2023-08-10 19:24] VITALS: BP 139/63; PULSE 93; RESP 18; TEMP 36.4; O2SAT 97
[2023-08-10 20:16] LABS: Glucose, Whole Blood 321 mg/dL (60-115)
[2023-08-10] MEDS: glipiZIDE 10 MG TABLET PO (21:24)
[2023-08-10] MEDS: Tamsulosin HCL 0.4 MG CAPSULE PO (21:24)
[2023-08-11] MEDS: 0.9 % Sodium Chloride 1,000 ML 125 ML IVCONT ×2 (00:15→07:10)
[2023-08-11 04:00] VITALS: BP 163/83; PULSE 79; RESP 16; TEMP 36.5; O2SAT 98
[2023-08-11 07:07] VITALS: BP 162/70; PULSE 78; RESP 18; TEMP 37.3; O2SAT 98
[2023-08-11 07:20] LABS: Glucose, Whole Blood 120 mg/dL (60-115)
[2023-08-11] MEDS: Heparin Sodium,Porcine 5,000 UNIT/ML VIAL 5000 UNIT SUBCUT (07:57)
[2023-08-11] MEDS: Aspirin 81 MG TAB.CHEW PO (07:58)
[2023-08-11] MEDS: Atorvastatin Calcium 10 MG TABLET PO (07:58)
[2023-08-11] MEDS: glipiZIDE 10 MG TABLET PO (07:58)
[2023-08-11] MEDS: Clopidogrel Bisulfate 75 MG TABLET PO (07:58)
[2023-08-11] MEDS: lisinopriL 10 MG TABLET PO (07:58)
[2023-08-11 11:13] LABS: Glucose, Whole Blood 186 mg/dL (60-115)
[2023-08-11] MEDS: Insulin Lispro 100 UNIT/ML 3 ML VIAL SUBCUT (11:43)
--- NOTE | 2023-08-11 12:28 | MHC.CM.PN ---
Addendum entered by Angella Robles 08/11/23 14:21: Patient is discharged to home today with family transport. Original Note: Met with pt + family regarding discharge planning. An diplomatic interpreter/translator was used. The MD, RN, Financial Clerical Methods Analyst, Toll Line Repairer and t/w, CM, were present. DP is to return home with family assist. All medical question were answered by the MD. The Financial Clerical Methods Analyst explained the insurance process. They understand that the insurance will be retroactive once processed. CM explained the difference between HCP, POA and Guardian. [facility] has been referred. A message was sent, notification of DC today. Dthossein Christy's contact info was provided. DP home new [facility]. Family will transport home. A new PCP has been obtained. [facility] is the office. The patient will have an appointment once the insurance is active. Home care services will be available once the new PCP has been seen. The family verbalized understanding of information provided.
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
--- NOTE | 2023-08-12 18:37 | P.CDIM_ITS ---
PROVIDER RESPONSE TEXT: To clarify, the appropriate diagnosis supported by the clinical indicators: Pressure injury Sacrum unstageable QUERY TEXT: PHYSICIAN'S DOCUMENTATION REQUEST Date of Query: 08/11/2023 07:50 AM EST Patient Name: Edmundo Manuel Admit Date: 08/09/2023 Dear Miguelangel Viera, A review of the medical record indicates additional documentation may be needed. Please review below and update the documentation accordingly. Clinical Indicators: Wound care note dated 08/09 - Unstageable pressure injury Sacrum, present on admission. Triad to autolytic debridement and foam to aid in off loading and pressure redistribution. Based on the above, could you please provide further information regarding the ulcer/wound/injury: Pressure injury Sacrum unstageable Other Other (explain) Clinically unable to determine (explain) Thank you, Janelle Saleh, CCS, CDIS Use of terms such as suspected, likely, concern for, or probable (associated with a specific diagnosi s that is being evaluated, monitored, or treated as if it exists) are acceptable and can be coded in the inpatient se tting, when documented at the time of discharge. Please use your independent medical judgment in providing your response. THIS QUERY IS PART OF THE PERMANENT MEDICAL RECORD
== END 2023-08-11 14:36 | disposition home or self-care (01) | DRG 439 ==
LOC: HO.ED 17:39 → HO.EDOVER 20:53 → HO.S3 08-09 07:53
PROVIDERS: Nurse Practitioner Acute Care; Physician Assistant Medical; Admitting Provider Internal Medicine; Emergency Provider Internal Medicine; Visit Provider Hospitalist
DX: D13.6 Benign neoplasm of pancreas (principal); G93.49 Other encephalopathy; I67.850 Cerebral autosomal dominant arteriopathy with subcortical infarcts and leukoencephalopathy; I10 Essential (primary) hypertension; F01.50 Vascular dementia, unspecified severity, without behavioral disturbance, psychotic disturbance, mood disturbance, and anxiety; E11.9 Type 2 diabetes mellitus without complications; N40.0 Benign prostatic hyperplasia without lower urinary tract symptoms; L89.150 Pressure ulcer of sacral region, unstageable; E78.5 Hyperlipidemia, unspecified; F17.210 Nicotine dependence, cigarettes, uncomplicated; Z71.6 Tobacco abuse counseling; Z79.02 Long term (current) use of antithrombotics/antiplatelets; Z79.82 Long term (current) use of aspirin; Z79.84 Long term (current) use of oral hypoglycemic drugs; Z79.899 Other long term (current) drug therapy
CPT/HCPCS: 36415; 70450; 70553; 71045; 72125; 74178; 80053; 80061; 81003; 82140; 82947; 83690; 84443; 85025; 97163; 99221; 99285; A9585; J1644; J3360; J3411; Q9967

== ENCOUNTER → 2023-08-08 20:44 | Outpatient (BNV) | payer OTHER, SELFPAY | PROVIDERS: Admitting Provider Internal Medicine; Emergency Provider Internal Medicine; Visit Provider Internal Medicine Gastroenterology | DX: K86.89 Other specified diseases of pancreas (principal) | CPT/HCPCS: 99222 ==

== ENCOUNTER → 2023-08-08 20:44 | Outpatient (BNV) | payer OTHER, SELFPAY | PROVIDERS: Admitting Provider Internal Medicine; Emergency Provider Internal Medicine; Visit Provider Registered Nurse | DX: F44.89 Other dissociative and conversion disorders (principal) | CPT/HCPCS: 99222 ==

== ENCOUNTER → 2023-08-08 20:44 | Outpatient (BNV) | payer OTHER, SELFPAY | PROVIDERS: Admitting Provider Internal Medicine; Emergency Provider Internal Medicine; Visit Provider Internal Medicine | DX: K86.89 Other specified diseases of pancreas (principal); R41.82 Altered mental status, unspecified | CPT/HCPCS: 99222 ==

== ENCOUNTER → 2023-08-08 20:44 | Outpatient (BNV) | payer OTHER, SELFPAY | PROVIDERS: Admitting Provider Internal Medicine; Emergency Provider Internal Medicine; Visit Provider Internal Medicine | DX: E11.69 Type 2 diabetes mellitus with other specified complication (principal); K86.89 Other specified diseases of pancreas; F44.89 Other dissociative and conversion disorders; G93.40 Encephalopathy, unspecified; R53.1 Weakness; N40.0 Benign prostatic hyperplasia without lower urinary tract symptoms | CPT/HCPCS: 99223; 99232; 99233; 99239 ==

== ENCOUNTER → 2023-08-08 20:44 | Outpatient (BNV) | payer MEDICAID, SELFPAY | PROVIDERS: Admitting Provider Internal Medicine; Emergency Provider Internal Medicine; Visit Provider Psychiatry & Neurology Neurology | DX: F44.89 Other dissociative and conversion disorders (principal) | CPT/HCPCS: 99222 ==

== ENCOUNTER 2023-08-18 10:25 | Outpatient (REF) | payer MEDICAID, SELFPAY ==
[2023-08-18 12:31] LABS: ~HepC Num1 9.42 S/CO (0.00-0.79); ~Hepatitis C Antibody Reactive (Nonreactive)
[2023-08-18 12:35] LABS: Syphilis Screen Nonreactive (Nonreactive)
[2023-08-18 12:45] LABS: Folate 11.5 ng/mL (> or = 4.0); Vitamin B12 456 pg/mL (200-900)
[2023-08-21 14:43] LABS: HCV Log PCR <1.18 NOT DETECTED Log IU/mL (NOT DETECTED); HepC Viral Load <15 NOT DETECTED IU/mL (NOT DETECTED)
== END 2023-08-18 10:26 | disposition home or self-care (01) ==
LOC: HO.HHCL 10:25
PROVIDERS: Visit Provider Family Medicine
DX: F03.90 Unspecified dementia, unspecified severity, without behavioral disturbance, psychotic disturbance, mood disturbance, and anxiety (principal); K86.89 Other specified diseases of pancreas; E11.65 Type 2 diabetes mellitus with hyperglycemia
CPT/HCPCS: 36415; 82607; 82746; 86780; 86803; 87522

== ENCOUNTER 2023-09-02 01:03 | Emergency (ER) | payer MEDICAID, SELFPAY ==
--- NOTE | ~2023-09-02 | CT_ITS ---
EXAMINATION: NONCONTRAST HEAD CT NONCONTRAST CERVICAL SPINE CT INDICATION INFORMATION: Injury with pain COMPARISON: 08/08/2023 TECHNIQUE: Separate noncontrast CT examinations of the head and cervical spine were performed. Coronal head CT images and coronal and sagittal cervical spine images were created at the technologist workstation. DLP: 1141 mGy-cm DOSE LOWERING TECHNIQUES: This CT examination was performed using dose optimization techniques as appropriate, variously including the following: - Automated exposure control - Adjustment of mA and/or kV according to patient size (this includes techniques or standardized protocols for targeted exams were dose is matched to indication/reason for exam; i.e. extremities or head) - Use of iterative reconstruction technique FINDINGS: Head: There is no evidence of acute intracranial hemorrhage or territorial infarction. No abnormal mass-effect or midline shift is seen. Garcia to white matter differentiation is well preserved. No extra-axial fluid collections are identified. The ventricles are normal in size. There is moderate periventricular white matter hypoattenuation which may reflect chronic small vessel ischemic disease or other leukomalacia as discussed on prior MRI. Mild volume loss is noted. There is right frontal scalp soft tissue swelling. No acute fracture is seen. The mastoid air cells and visualized portions of the paranasal sinuses are well-aerated. Cervical spine: There is anatomic alignment of the vertebral bodies and posterior elements. Vertebral body heights are maintained. Mild facet arthropathy throughout the cervical spine. Intervertebral disc spaces are relatively well-preserved. Multilevel endplate osteophytes are present. No evidence of acute fracture. No prevertebral soft tissue swelling. Visualized portions of the lung apices are unremarkable. The thyroid gland is unremarkable. CT/CT cervical spine wo IV con IMPRESSION: HEAD: No acute intracranial findings. Right frontal scalp soft tissue swelling. CERVICAL SPINE: No acute findings identified.
[2023-09-02 01:06] VITALS: BP 156/84; PULSE 75; RESP 17; TEMP 36.4; O2SAT 99; BMI 19.4
== END 2023-09-02 05:43 | disposition left against medical advice (07) ==
PROVIDERS: Emergency Provider Emergency Medicine; PCP Family Medicine
DX: S09.90XA Unspecified injury of head, initial encounter (principal); W19.XXXA Unspecified fall, initial encounter; Y93.9 Activity, unspecified; Y92.9 Unspecified place or not applicable; Y99.9 Unspecified external cause status
CPT/HCPCS: 70450; 72125; 99281; 99284

== ENCOUNTER 2023-11-04 14:29 | Outpatient (REF) | payer MEDICARE, MEDICAID, SELFPAY ==
[2023-11-04 19:08] LABS: Prostate Specific Antigen Scr 1.91 ng/mL (<0.05-4.0)
== END 2023-11-04 14:30 | disposition home or self-care (01) ==
LOC: HO.HHCL 14:29
PROVIDERS: Visit Provider Family Medicine
DX: Z12.5 Encounter for screening for malignant neoplasm of prostate (principal); N40.0 Benign prostatic hyperplasia without lower urinary tract symptoms
CPT/HCPCS: 36415; 84153

== ENCOUNTER 2023-11-10 04:58 | Emergency (ER) | payer MEDICARE, MEDICAID, SELFPAY ==
[2023-11-10 05:05] VITALS: BP 157/80; BP 180/90; PULSE 104; PULSE 95; RESP 18; TEMP 36.4; O2SAT 98
[2023-11-10 05:11] VITALS: BP 157/80; PULSE 95; RESP 18; TEMP 36.4; O2SAT 98; BMI 21.5
[2023-11-10 05:12] LABS: Glucose, Whole Blood 160 mg/dL (60-115)
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
[2023-11-10 06:05] LABS: Appearance Urine Clear; Color Urine Yellow; Glucose Urine UA Negative (Negative); Leukocyte Esterase Urine Negative (Negative); Nitrite Urine Negative (Negative); PH 5.5 (5.0-9.0); UMIC TRIGGER UACC YES; Urine Blood Negative (Negative); Urine Ketones Trace mg/dL (Negative); Urine Protein 30 (1+) mg/dL (Neg-Trace)
[2023-11-10 06:10] LABS: Bacteria Urine None Seen (None Seen); RBC Urine 0-2 /HPF (0-2); Squamous Epithelial Cell Urine 0-2 /HPF (0-2); WBC Urine 0-5 /HPF (0-5)
[2023-11-10 06:13] VITALS: BP 141/75; PULSE 81; RESP 18; TEMP 36.7; O2SAT 98
== END 2023-11-10 06:15 | disposition home or self-care (01) ==
PROVIDERS: Emergency Provider Student in an Organized Health Care Education/Training Program
DX: F03.90 Unspecified dementia, unspecified severity, without behavioral disturbance, psychotic disturbance, mood disturbance, and anxiety (principal); R41.82 Altered mental status, unspecified; Z79.899 Other long term (current) drug therapy
CPT/HCPCS: 81001; 82947; 99282; 99283

== ENCOUNTER 2024-02-15 11:27 | Outpatient (REF) | payer MEDICARE, MEDICAID, SELFPAY ==
--- NOTE | ~2024-02-15 | XR_ITS ---
EXAMINATION: XR HIP LEFT XR HIP RIGHT XR KNEE LEFT XR KNEE RIGHT CLINICAL INFORMATION: Pain and weakness COMPARISON: CT images of pelvis from 08/09/2023 TECHNIQUE: Right hip, 2 views and left hip, 2 views Right knee, 2 views and left knee, 2 views FINDINGS: Left hip: The visualized left pelvic bones are intact. The femoral head is well-positioned within the acetabulum. The articular cartilage space of the hip is well-preserved. No evidence of any significant degenerative or inflammatory arthropathy. Multiple punctate metallic densities project over the region of the greater trochanter where there is heterotopic ossification. Correlate for remote trauma history. Right hip: The visualized right-sided pelvic bones are intact. The femoral head is well-positioned within the acetabulum. The articular cartilage space is maintained. There is an old 0.3 cm calcification along the lateral acetabular rim. Right knee: Bones have normal alignment and joint spaces are maintained. No arthritic deformity, fracture or subluxation. No joint effusion. The calcification seen posterior to the distal femoral metaphysis is likely popliteal artery calcification. Left knee: Bones, joints and soft tissues have a normal appearance. No arthritic deformity, fracture, subluxation or joint effusion. XR/XR hip LT min 2V IMPRESSION: There are no acute or radiographically significant abnormalities at the hips or knees (i.e., no acute fracture or malalignment).
--- NOTE | ~2024-02-15 | XR_ITS ---
EXAMINATION: XR HIP LEFT XR HIP RIGHT XR KNEE LEFT XR KNEE RIGHT CLINICAL INFORMATION: Pain and weakness COMPARISON: CT images of pelvis from 08/09/2023 TECHNIQUE: Right hip, 2 views and left hip, 2 views Right knee, 2 views and left knee, 2 views FINDINGS: Left hip: The visualized left pelvic bones are intact. The femoral head is well-positioned within the acetabulum. The articular cartilage space of the hip is well-preserved. No evidence of any significant degenerative or inflammatory arthropathy. Multiple punctate metallic densities project over the region of the greater trochanter where there is heterotopic ossification. Correlate for remote trauma history. Right hip: The visualized right-sided pelvic bones are intact. The femoral head is well-positioned within the acetabulum. The articular cartilage space is maintained. There is an old 0.3 cm calcification along the lateral acetabular rim. Right knee: Bones have normal alignment and joint spaces are maintained. No arthritic deformity, fracture or subluxation. No joint effusion. The calcification seen posterior to the distal femoral metaphysis is likely popliteal artery calcification. Left knee: Bones, joints and soft tissues have a normal appearance. No arthritic deformity, fracture, subluxation or joint effusion. XR/XR hip RT min 2V IMPRESSION: There are no acute or radiographically significant abnormalities at the hips or knees (i.e., no acute fracture or malalignment).
--- NOTE | ~2024-02-15 | XR_ITS ---
EXAMINATION: XR HIP LEFT XR HIP RIGHT XR KNEE LEFT XR KNEE RIGHT CLINICAL INFORMATION: Pain and weakness COMPARISON: CT images of pelvis from 08/09/2023 TECHNIQUE: Right hip, 2 views and left hip, 2 views Right knee, 2 views and left knee, 2 views FINDINGS: Left hip: The visualized left pelvic bones are intact. The femoral head is well-positioned within the acetabulum. The articular cartilage space of the hip is well-preserved. No evidence of any significant degenerative or inflammatory arthropathy. Multiple punctate metallic densities project over the region of the greater trochanter where there is heterotopic ossification. Correlate for remote trauma history. Right hip: The visualized right-sided pelvic bones are intact. The femoral head is well-positioned within the acetabulum. The articular cartilage space is maintained. There is an old 0.3 cm calcification along the lateral acetabular rim. Right knee: Bones have normal alignment and joint spaces are maintained. No arthritic deformity, fracture or subluxation. No joint effusion. The calcification seen posterior to the distal femoral metaphysis is likely popliteal artery calcification. Left knee: Bones, joints and soft tissues have a normal appearance. No arthritic deformity, fracture, subluxation or joint effusion. XR/XR knee LT 2V IMPRESSION: There are no acute or radiographically significant abnormalities at the hips or knees (i.e., no acute fracture or malalignment).
--- NOTE | ~2024-02-15 | XR_ITS ---
EXAMINATION: XR HIP LEFT XR HIP RIGHT XR KNEE LEFT XR KNEE RIGHT CLINICAL INFORMATION: Pain and weakness COMPARISON: CT images of pelvis from 08/09/2023 TECHNIQUE: Right hip, 2 views and left hip, 2 views Right knee, 2 views and left knee, 2 views FINDINGS: Left hip: The visualized left pelvic bones are intact. The femoral head is well-positioned within the acetabulum. The articular cartilage space of the hip is well-preserved. No evidence of any significant degenerative or inflammatory arthropathy. Multiple punctate metallic densities project over the region of the greater trochanter where there is heterotopic ossification. Correlate for remote trauma history. Right hip: The visualized right-sided pelvic bones are intact. The femoral head is well-positioned within the acetabulum. The articular cartilage space is maintained. There is an old 0.3 cm calcification along the lateral acetabular rim. Right knee: Bones have normal alignment and joint spaces are maintained. No arthritic deformity, fracture or subluxation. No joint effusion. The calcification seen posterior to the distal femoral metaphysis is likely popliteal artery calcification. Left knee: Bones, joints and soft tissues have a normal appearance. No arthritic deformity, fracture, subluxation or joint effusion. XR/XR knee RT 2V IMPRESSION: There are no acute or radiographically significant abnormalities at the hips or knees (i.e., no acute fracture or malalignment).
== END 2024-02-15 11:28 | disposition home or self-care (01) ==
LOC: HO.HHCX 11:27
PROVIDERS: Visit Provider Family Medicine
DX: M79.604 Pain in right leg (principal); M79.605 Pain in left leg; R29.898 Other symptoms and signs involving the musculoskeletal system; R53.1 Weakness
CPT/HCPCS: 73502; 73560

== ENCOUNTER 2024-07-02 10:58 | Outpatient (AMB) | payer MEDICARE, MEDICAID, SELFPAY ==
--- NOTE | 2024-05-02 12:46 | A.OFFVIS_ITS ---
Intake Visit Reasons: BPH/ kidney stones/PVR Allergies No Known Allergies Allergy (Verified 11/10/23 05:11) HPI Comments Details: PSA 11/04/23--1.91 [facility] Medical History Mass of pancreas Dementia Generalized weakness Confusional state BPH (benign prostatic hyperplasia) Pancreatic lesion Dementia Pancreatic cancer Hypertension Diabetes mellitus Surgical History History of hernia repair S/P right knee arthroscopy Social History Household Members: Family Unable to assess alcohol history related to: Unknown Alcohol intake: former Patient Tobacco Use Status: Tobacco use Unknown Advance Directives Date on File: 09/01/23 service: No Review of Systems Const All systems reviewed & are unremarkable except as noted in HPI and below Reports no additional complaints Eyes Reports no additional complaints ENT Reports no additional complaints Card Reports no additional complaints Resp Reports no additional complaints GI Reports no additional complaints Reports as per HPI Musc Reports no additional complaints Skin/Breast Reports system reviewed and no additional complaints, except as documented Neuro Reports no additional complaints Psych Reports no additional complaints Endo Reports no additional complaints Hugh/Lymph Reports no additional complaints Aller/Immun Reports no additional complaints Coding
--- NOTE | 2024-07-02 11:12 | MHC.OFFVIS ---
Intake Visit Reasons: BPH/ kidney stones/PVR Intake Note: New patient is present for BPH/Kidney Stones Urology Med: Tamsulosin Antibiotic Allergy: None Blood Thinner: Aspirin, Plavix PSA:11/[address] - 08/09/2023- Prostatamegaly PVR: 0ml Radiotelephone Technical Operator Required: Yes Radiotelephone Technical Operator Language: Magento Developer Name: [id number] Labor Custodian: Labor Custodian Present Accompanied by: Daughter Allergies No Known Allergies Allergy (Verified 07/02/24 11:22) Medication List - Last Reconciled 07/02/24 by Farida Martin MD aspirin 81 mg PO DAILY atorvastatin 10 mg PO DAILY clopidogrel (Plavix) 75 mg PO DAILY glipizide 10 mg PO BID lancets (TRUEplus Lancets) As directed lisinopril 10 mg PO DAILY melatonin 10 mg PO QPM pioglitazone (Actos) 15 mg PO DAILY quetiapine 25 mg PO BEDTIME tamsulosin 0.4 mg PO BEDTIME HPI Comments Details: Edmundo is here for new patient evaluation, he presents with his daughter Stacia who states that her father has dementia. I have discussed that I reviewed CT scan August 2023 bilateral small kidney stones nonobstructing. The patient has been on tamsulosin since August I will continue to fill this medication. He denies any pain or blood with urination. PSA 11/04/23--1.91 ng/mL. Will monitor kidney stones for now follow-up in 6 months renal ultrasound prior. [facility] Medical History Mass of pancreas Dementia Generalized weakness Confusional state BPH (benign prostatic hyperplasia) Pancreatic lesion Dementia Pancreatic cancer Hypertension Diabetes mellitus Surgical History History of hernia repair S/P right knee arthroscopy Social History Household Members: Family Unable to assess alcohol history related to: Unknown Alcohol intake: former Patient Tobacco Use Status: Tobacco use Unknown Advance Directives Date on File: 09/01/23 service: No Review of Systems Const All systems reviewed & are unremarkable except as noted in HPI and below Reports no additional complaints Eyes Reports no additional complaints ENT Reports no additional complaints Card Reports no additional complaints Resp Reports no additional complaints GI Reports no additional complaints Reports as per HPI Musc Reports no additional complaints Skin/Breast Reports system reviewed and no additional complaints, except as documented Neuro Reports no additional complaints Psych Reports no additional complaints Endo Reports no additional complaints Hugh/Lymph Reports no additional complaints Aller/Immun Reports no additional complaints Physical Exam Const General: healthy appearing, no acute distress and well developed Orientation/consciousness: patient oriented x3 HEENT Head: Yes normocephalic and Yes atraumatic Eyes Conjunctivae: conjunctivae normal Neck Neck: Yes normal visual inspection Chest Chest palpation & inspection: normal inspection of the chest Resp Effort & Inspection: normal respiratory effort Cardio Rate: regular rate GI Inspection: Yes normal to inspection Neuro General: patient oriented x3 Psych Appearance: grossly normal Affect: normal affect Office Procedures Post Void Residual Post Residual Void Post Void Residual (PVR): 0 34425-Redj Void Residual by ultrasound Results AMB Urinalysis, Automated UA Leukoctes 125 Kylie/uL Last Edit by MARIAN Stafford on 07/02/24 11:37 UA Nitrite Last Edit by Cammy Ryder [facility] on 07/02/24 11:37 UA Urobilinogen 0.2 mg/dL Last Edit by Cammy Ryder [facility] on 07/02/24 11:37 UA Protein 15 mg/dL Last Edit by Cammy Ryder [facility] on 07/02/24 11:37 UA pH 6.0 Last Edit by Cammy Ryder [facility] on 07/02/24 11:37 UA Blood 10 Gorge/uL Last Edit by Cammy Ryder [facility] on 07/02/24 11:37 UA Specific Widener 1.020 Last Edit by Cammy Ryder [facility] on 07/02/24 11:37 UA Ketone Last Edit by Cammy Ryder [facility] on 07/02/24 11:37 UA Bilirubin 0 mg/dL Last Edit by Cammy Ryder [facility] on 07/02/24 11:37 UA Glucose 0 mg/dL Last Edit by Cammy Ryder [facility] on 07/02/24 11:37 Results Reviewed Results Reviewed: Laboratory Last Values Urine pH (Auto) 6.0 07/02/24 11:36 Specific Widener (Auto) 1.020 07/02/24 11:36 Urine Protein (Auto) 15 mg/dL 07/02/24 11:36 Glucose (UA)(Auto) 0 mg/dL 07/02/24 11:36 Urine Blood (Auto) 10 Gorge/uL 07/02/24 11:36 Urine Bilirubin (Auto) 0 mg/dL 07/02/24 11:36 Urine Urobilinogen (Auto) 0.2 mg/dL 07/02/24 11:36 Leukocyte Esterase (Auto) 125 Kylie/uL 07/02/24 11:36 Assessment & Plan Assessment & Plan (1) BPH loc w urin obs/LUTS: Code(s): N40.1 - Benign prostatic hyperplasia with lower urinary tract symptoms Category: Medical (2) Bilateral kidney stones: Code(s): N20.0 - Calculus of kidney Category: Medical Plan tamsulosin 0.4 mg at bedtime, renal US in 6 months Orders: Orders AMB Urinalysis Automated Today Z13.9 - Encounter for screening, unspecified AMB Post Void Residual by ultrasound Today N40.0 - Benign prostatic hyperplasia without lower urinary tract symptoms US renal BI 5 Months N20.0 - Calculus of kidney Medications: New tamsulosin 0.4 mg PO BEDTIME 90 caps 3RF for prostate Patient Instructions: The patient had an opportunity to ask questions regarding treatment plan. The patient expressed understanding and agreement with the above treatment plan. The patient is aware they should contact our office by phone for worsening of their current condition or the appearance of new symptoms. Compliance is encouraged with any medications and followup testing that is ordered. It is a privilege to be allowed the opportunity to participate in the urologic care of your patient. If you have any questions or concerns regarding treatment for the above conditions please do not hesitate to contact me. The office telephone contact is [phone]. This note is constructed in part using voice recognition software. While every effort has been made to ensure accuracy tan room supervisor errors may have been included. Yours sincerely, Farida Martin MD Coding Level of Care Code New Pt Level 4 (78333) Diagnoses BPH loc w urin obs/LUTS N40.1 Bilateral kidney stones N20.0 CPT Codes Post Residual Void - PVR CPT Code: 34856-Dpom Void Residual by ultrasound ([id number])
== END 2024-07-02 12:11 | disposition home or self-care (01) ==
PROVIDERS: PCP Family Medicine; Visit Provider Urology
DX: N40.1 Benign prostatic hyperplasia with lower urinary tract symptoms (principal); N20.0 Calculus of kidney; Z13.9 Encounter for screening, unspecified
CPT/HCPCS: 99204

== ENCOUNTER → 2024-07-02 10:58 | Outpatient (BNVA) | payer MEDICARE, MEDICAID, SELFPAY | PROVIDERS: PCP Family Medicine; Visit Provider Urology | DX: N40.1 Benign prostatic hyperplasia with lower urinary tract symptoms (principal); N20.0 Calculus of kidney | CPT/HCPCS: 51798; 81003; 99202 ==

== ENCOUNTER 2024-11-09 12:01 | Outpatient (REF) | payer OTHER, SELFPAY ==
--- OUTSIDE RECORDS SUMMARY | 2024-11-09 12:23 | XMS_ITS | Encounter Summary ---
Author Organization [employer] Address [address] [place] [address] [address] [place] [address] Care Team Providers Care Can Reconditioner Name Role Phone Deja Gonzalez MD Primary Care Provider [phone] Encounter Details Date Type Department Care Team (Late Contact Info) Description 10/13/2023 Telephone [facility] MEDICINE [address] [place], [place] [phone] Deja Gonzalez MD [address] [place], [place] [phone] Social History Tobacco Use Types Packs/Day Years Used Date Smoking Tobacco: Former Cigarettes Alcohol Use Standard Drinks/Week Comments Never 0 (1 standard drink = 0.6 oz pur e alcohol) Sex and Gender Information Value Date Recorded Sex Assigned at Male 05/03/2022 10:31 AM EDT Legal Sex Male 10:31 AM EDT Gender Identity Male 08/17/2023 11:44 AM EST Sexual Orientation Straight 08/17/2023 11 :44 AM EST documented as of this encounter Plan of Treatment Upcoming Encounters Date Type Department Care Team (Late Contact Info) Description 11/12/2024 2:30 PM EDT Office Visit [facility] MEDICINE [address] [place] [address] Deja Gonzalez MD [address] [place], [place] [phone] 12/06/2024 3:00 PM EDT Office Visit [facility] OPTOMETRY [address] [place], [place] [phone] YayoRoselia silva, OD [address] [place] [address] documented as of this encounter Visit Diagnoses Not on filedocumented in this encounter Care Teams Can Reconditioner Relationship Specialty Start Date End Date Deja Gonzalez MD [address] [place] [address] PCP - General Family Medicine 08/18/23 documented as of this encounter
--- OUTSIDE RECORDS SUMMARY | 2024-11-09 12:23 | XMS_ITS | Encounter Summary ---
Author Organization [employer] Address [address] [place] [address] 7t [place] [address] Care Team Providers Care Cotton Roll Packer Name Role Phone Deja Gonzalez MD Primary Care Provider [phone] Reason for Visit * Reason Onset Date Comments chartprep 11/09/2024 Encounter Details Date Type Department Care Team ([facility] st Contact Info) Description 11/09/2024 Telephone [facility] MEDICINE [address] [place], [place] [phone] Deja Gonzalez MD [address] [place], [place] [phone] chartprep Social History Tobacco Use Types Packs/Day Years Used Date Smoking Tobacco: Former Cigarettes Alcohol Use Standard Drinks/Week Comments Never 0 (1 standard drink = 0.6 oz pur e alcohol) Housing Stability Answer Date Recorded What is your housing situation today? I have latasha cabrera 11/03/[address] you li ve. Do you have problems with any of the following? None of the above 11/03/2023 Food Insecurity Answer Date Recorded Within the past 12 months, y ou worried that your food would run out before you got money to buy more: Never True 11/03/2023 Within the past 12 months,th e food you bought just didn't last and you didn't have enough money to get more: Never True 08/2023 Transportation Answer Date Recorded In the past 12 months, has l ack of transportation kept you from medical appts, meetings, work or from getting things needed for daily living? No 11/03/2023 Utilities Answer Date Recorded In the past 12 months, has t he [employer], gas, oil or water [employer] threatened to shut off services in your home? No 11/03/2023 Sex and Gender Information Value Date Recorded Sex Assigned at Male 05/03/2022 10:31 AM EDT Legal Sex Male 10:31 AM EDT Gender Identity Male 08/17/2023 11:44 AM EST Sexual Orientation Straight 08/17/2023 11 :44 AM EST documented as of this encounter Miscellaneous Notes * Telephone Encounter - Lizeth Arango [place] - 11/09/2024 11:15 AM EDT ..Chart Prep Labs: not done Images: not applicable Vaccines due: Covid Due, PCV20 Due, Flu Due, and Shingles in pharmacy Due Referrals: Not Applicable Screenings: Colonoscopy and Eye Exam Overdue care gaps: A1C, Glucose, SDOH, PQ9, GAD7, Disability , and Oral Health I spoke with the pt that he needs to do blood work before the appt. documented in this encounter Plan of Treatment Upcoming Encounters Date Type Department Care Team (Late st Contact Info) Description 11/12/2024 2:30 PM EDT Office Visit [facility] MEDICINE [address] [place] [address] Deja Gonzalez MD [address] [place] [address] 12/06/2024 3:00 PM EDT Office Visit [facility] OPTOMETRY [address] [place] [address] Yayo, Roselia, OD [address] [place] [address] documented as of this encounter Visit Diagnoses Not on filedocumented in this encounter Care Teams Cotton Roll Packer Relationship Specialty Start Date End Date Deja Gonzalez MD [address] [place] [address] PCP - General Family Medicine 08/18/23 documented as of this encounter
--- OUTSIDE RECORDS SUMMARY | 2024-11-09 12:23 | XMS_ITS | Encounter Summary ---
Author Organization [facility] [facility] [employer] Address [address] [place] [address] [address] [place] [address] Care Team Providers Care Zipper Slide Attacher Name Role Phone Deja Gonzalez MD Primary Care Provider [phone] Encounter Details Date Type Department Care Team ([facility] st Contact Info) Description 12/26/2023 Telephone [facility] MEDICINE [address] [place], [place] [phone] Deja Gonzalez MD [address] [place], [place] [phone] Social History Tobacco Use Types Packs/Day Years [...] the past 12 months, has t he electric, gas, oil or water company threatened to shut off services in your [...] Description 11/12/2024 2:30 PM EDT Office Visit [facility] MEDICINE [address] [place] [address] Deja Gonzalez MD [address] [place] [address] 12/06/2024 3:00 PM EDT Office Visit [facility] OPTOMETRY [address] [place] [address] Yayo, Roselia, OD [address] [place] [address] documented as of this encounter Visit Diagnoses Not on filedocumented in this encounter Care Teams Zipper Slide Attacher Relationship Specialty Start Date End Date Deja Gonzalez MD [address] [place] [address] PCP - General Family Medicine 08/18/23 documented as of this encounter
--- OUTSIDE RECORDS SUMMARY | 2024-11-09 12:23 | XMS_ITS | Encounter Summary ---
Author Organization [employer] Address [address] [place] [address] [address] [place] [address] Care Team Providers Care Model Maker Apprentice Name Role Phone Deja Gonzalez MD Primary Care Provider [phone] Encounter Details Date Type Department Care Team (Late Contact Info) Description 08/24/2023 Orders Only [facility] MEDICINE [address] [place] [address] Deja Gonzalez MD [address] [place], [place] [phone] Social History Tobacco Use Types Packs/Day Years [...] Description 11/12/2024 2:30 PM EDT Office Visit [facility] MEDICINE [address] [place] [address] Deja Gonzalez MD [address] [place], [place] [phone] 12/06/2024 3:00 PM EDT Office Visit [facility] OPTOMETRY [address] [place], [place] [phone] Roselia Zee, OD [address] [place] [address] documented as of this encounter Visit Diagnoses Not on filedocumented in this encounter Care Teams Model Maker Apprentice Relationship Specialty Start Date End Date Deja Gonzalez MD [address] [place] [address] PCP - General Family Medicine 08/18/23 documented as of this encounter
--- OUTSIDE RECORDS SUMMARY | 2024-11-09 12:23 | XMS_ITS | Encounter Summary ---
Author Organization [facility] Address [address] [place] [address] [address] [place] [address] Care Team Providers Care Deputy Head Name Role Phone Deja Gonzalez MD Primary Care Provider [phone] Reason for Visit * Reason Onset Date Comments Med Refill 10/13/2023 Encounter Details Date Type Department Care Team ([facility] st Contact Info) Description 10/13/2023 Telephone [facility] MEDICINE [address] [place], [place] [phone] Deja Gonzalez MD [address] [place], [place] [phone] Med Refill Social History Tobacco Use Types Packs/Day Years [...] encounter Miscellaneous Notes * Telephone Encounter - Cammy Mccain LPN - 10/13/2023 12:45 PM EDT Medication was sent to [facility] on 10/05/23. * Telephone Encounter - Felton Ponce - 10/13/2023 12:39 PM EDT TC from pt requesting medication refill. Medications needing refill: melatonin 10 MG tablet To be sent to: [facility]. documented in this encounter Plan of Treatment Upcoming Encounters Date Type Department Care Team (Late st Contact Info) Description 11/12/2024 2:30 PM EDT Office Visit [facility] MEDICINE [address] [place] [address] Deja Gonzalez MD [address] [place] [address] 12/06/2024 3:00 PM EDT Office Visit [facility] OPTOMETRY [address] [place] [address] Roselia Zee, OD [address] [place] [address] documented as of this encounter Visit Diagnoses Not on filedocumented in this encounter Care Teams Deputy Head Relationship Specialty Start Date End Date Deja Gonzalez MD [address] [place] [address] PCP - General Family Medicine 08/18/23 documented as of this encounter
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
[2024-11-09 14:12] LABS: Alanine Aminotransferase 22 U/L (0-40); Albumin Level 4.3 g/dL (3.5-5.0); Alkaline Phosphatase 82 U/L (39-117); Anion Gap 11 (12-20); Aspartate Amino Transferase 24 U/L (5-37); Bilirubin Total 0.4 mg/dL (0.0-1.0); Blood Urea Nitrogen 19 mg/dL (9-16); Calcium 9.5 mg/dL (8.4-10.2); Carbon Dioxide 28 mmol/L (22-29); Chloride 99 mmol/L (96-108); Cholesterol 143 mg/dL (<200); Estimated Glomerular Filt Rate > 60; Glucose Random 180 mg/dL (60-115); HDL Cholesterol 41 mg/dL (>40); LDL Cholesterol Calculated 82 mg/dL (<100); Sodium 134 mmol/L (135-145); TSH reflex Free T4 1.36 uIU/mL (0.32-4.0); Total Protein 7.7 g/dL (6.5-8.0); Triglycerides 101 mg/dL (<150)
[2024-11-09 14:39] LABS: Folate 12.9 ng/mL (> or = 4.0); Vitamin B12 468 pg/mL (200-900)
[2024-11-09 14:46] LABS: Reflex LDLD? No
== END 2024-11-09 12:02 | disposition home or self-care (01) ==
LOC: HO.HHCL 12:01
PROVIDERS: Visit Provider Family Medicine
DX: F03.A18 Unspecified dementia, mild, with other behavioral disturbance (principal); E11.65 Type 2 diabetes mellitus with hyperglycemia; I10 Essential (primary) hypertension; E78.2 Mixed hyperlipidemia
CPT/HCPCS: 36415; 80053; 80061; 82607; 82746; 84443

== ENCOUNTER 2024-12-10 16:04 | Emergency (ER) | payer OTHER, SELFPAY ==
--- NOTE | ~2024-12-10 | CT_ITS ---
EXAMINATION: CT HEAD WITHOUT CONTRAST CLINICAL INFORMATION: Trauma. On Plavix. COMPARISON: None available. TECHNIQUE: Contiguous axial imaging was performed from the skull base to vertex without intravenous administration of contrast. This CT examination was performed using dose optimization techniques as appropriate, variously including the following: *Automated exposure control *Adjustment of mA and/or kV according to patient size (this includes techniques or standardized protocols for targeted exams where dose is matched to indication/reason for exam; i.e. extremities or head) *Use of iterative reconstruction technique FINDINGS: There is no acute intra-axial, extra-axial bleed, masses or midline shift. There is no acute infarction in evolution without edema or mass effect. The lateral ventricles are symmetrical in size and configuration with mild prominence. There is diffuse periventricular hypodensity suggestive of chronic small vessel ischemic changes. Bone windows reveal no calvarial abnormality. There is no scalp soft tissue abnormality. Bilateral paranasal sinuses and mastoid air cells are well-aerated. CT/CT head/brain wo IV con IMPRESSION: No acute intracranial process seen. Electronically signed by: Elgin Mensah MD 12/10/2024 04:58 PM EDT
--- NOTE | ~2024-12-10 | XR_ITS ---
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 Mild osteoarthritis of the right glenohumeral joint. Right lateral 8th and 9th rib fractures likely acute and nondisplaced. Mild bibasilar atelectasis. No pneumothorax or pleural effusion in the [id number]. Tortuosity thoracic aorta in the imaged mediastinum. IMPRESSION: 1. Acute nondisplaced right 8th and 9th rib fractures. 2. Degenerative changes include imaged right AC joint. This document has been electronically signed by: Dg Mooney MD on 12/10/2024 22:18:53
--- NOTE | ~2024-12-10 | XR_ITS ---
CLINICAL HISTORY: trauma Radiographs of the chest and left ribs, 4 views Comparison: None Findings: No rib fracture or other acute osseous abnormality. Normal heart size. Normal mediastinal contours. No pneumothorax. No opacity. No pleural effusion. Normal upper abdomen. Impression: No rib fracture. This document has been electronically signed by: Caitie Fields MD on 12/10/2024 17:15:17
[2024-12-10 16:21] VITALS: BP 125/67; PULSE 81; RESP 19; TEMP 36.6; O2SAT 98; BMI 21.8
--- NOTE | 2024-12-10 16:25 | ED.GENADULT ---
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 He reports R rib pain after the fall. He has no LOC, family notes he is at his baseline. He has no cough, vomiting, blood in urine reported. Hurts to take a deep breath on R side. Fall happened at home yesterday. MD complaint: fall Onset (ago): day(s) (yesterday) Location: head and chest Radiation: non-radiation Severity: moderate Quality: aching Pain Consistency: intermittent Relieving factors: rest Exacerbating factors: movement (deep breaths) Associated symptoms: denies other symptoms Treatments prior to arrival: none Related Data Home Medications ?Medication ?Instructions ?Recorded ?Confirmed aspirin 81 mg chewable tablet 81 mg PO DAILY 08/08/23 07/02/24 atorvastatin 10 mg tablet 10 mg PO DAILY 08/08/23 07/02/24 clopidogrel 75 mg tablet (Plavix) 75 mg PO DAILY 08/08/23 07/02/24 glipizide 10 mg tablet 10 mg PO BID 08/08/23 07/02/24 lisinopril 10 mg tablet 10 mg PO DAILY 08/08/23 07/02/24 pioglitazone 15 mg tablet (Actos) 15 mg PO DAILY 08/08/23 07/02/24 lancets 33 gauge (TRUEplus Lancets) #100 ea 07/02/24 07/02/24 melatonin 5 mg tablet 10 mg PO QPM 07/02/24 07/02/24 quetiapine 25 mg tablet 25 mg PO BEDTIME 07/02/24 07/02/24 Previous Rx's ?Medication ?Instructions ?Recorded tamsulosin 0.4 mg capsule 0.4 mg PO BEDTIME for prostate #90 07/02/24 caps acetaminophen 650 mg 650 mg PO Q8H PRN pain (scale 12/10/24 tablet,extended release (Tylenol 8 score 1-3) #30 tabs Hour) lidocaine 5 % topical patch 1 patch topical DAILY #30 ea 12/10/24 Allergies Allergy/AdvReac Type Severity Reaction Status Date / Time No Known Allergies Allergy Verified 12/10/24 16:22 Review of Systems Review of Systems: Constitutional : No Fever, No Chills, No Fatigue ENT/Mouth : No sore throat, No Rhinorrhea Eyes: No Eye Pain, No Swelling, No Redness Cardiovascular : No Chest Pain, No SOB, No Dyspnea on Exertion, pos rib pain Respiratory : No Cough, No Sputum Gastrointestinal : No Nausea, No Vomiting, No Diarrhea, No abdominal Pain Genitourinary : No Dysuria, No Urinary Frequency, No Hematuria, Musculoskeletal : No joint pain, No Myalgias, No Joint Swelling Skin : No Skin Lesions, No rash Neuro : No Weakness, No Numbness, No Dizziness, no Headache All other systems reviewed and are negative [facility] Past Medical History Attestation statement: The following information was validated with the patient. Source: old records reviewed Medical History Mass of pancreas Dementia Generalized weakness Confusional state BPH (benign prostatic hyperplasia) Pancreatic lesion Dementia Pancreatic cancer Hypertension Diabetes mellitus Surgical History History of hernia repair S/P right knee arthroscopy Social History Social History Household Members: Family Unable to assess alcohol history related to: Unknown Alcohol intake: former Patient Tobacco Use Status: Tobacco use Unknown Advance Directives: Yes Advance Directives on File: Yes Advance Directives Date on File: 08/12/23 Do you have a plan to hurt others: No Plan service: No Physical Exam ED Vital Signs: Vital Signs - 24 hr 12/10/24 16:21 12/10/24 20:34 Temperature 98 F 97.8 F Pulse Rate 81 70 Respiratory Rate 19 Blood Pressure 125/67 133/77 Pulse Oximetry 98 98 Oxygen Delivery Method Room Air Room Air BMI result Body Mass Index 21.8 Appearance: Alert. Oriented X at his baseline. No acute distress. Eyes: Pupils equal, round and reactive to light. ENT: Pharynx normal. atraumatic Neck: Normal inspection. Neck supple. Normal ROM no ttp on exam CVS: Normal heart rate and rhythm. Pulses normal. Chest wall: ttp along R ribs but no crepitus or contusion noted Respiratory: No respiratory distress. Breath sounds normal. Abdomen: Soft and nontender. Skin: Skin warm and dry. Normal skin color. Normal skin turgor. Extremities: No lower extremity edema. No calf ttp Neuro: Oriented X at baseline. No motor deficit. No sensory deficit. CN2-12 intact Course Course Course Narrative: RME, this is a rapid medical exam performed by Eduard Menjivar please refer to primary provider for complete H&P- 69-year-old male presents for evaluation of left chest pain after falling in the bathtub yesterday. He is on Plavix. Denies hitting his head or loss of consciousness. Plan for x-ray of chest with left-sided ribs. We will also get a CT scan of the head given the antiplatelet therapy Reevaluation(s) Reevaluation #1: call to family after they wanted to leave prior to DC - aware of rib fractures, small business sales representative used Medications Administered Discontinued Medications Generic Name Dose Route Start Last Admin Trade Name Freq PRN Reason Stop Dose Admin Lidocaine 1 patch 12/10/24 21:14 12/10/24 21:59 Lidocaine 4 % Patch Adh..Patch TRANSDERMA 12/10/24 21:15 1 patch ONCE ONE Administration Protocol Medical Decision Making Medical Decision Making MDM Narrative: 69 yo male with PMH of HTN, dementia - mild, pancreatic lesion, not on blood thinners now here s/p trip and fall one day ago at this time he is at his neuro baseline - given age he will need CT head, R rib xrays for trauma - unfortunately he had L rib film done. Discussed pulm toilet with family and start on tylenol and lidocaine patch. Given pneumonia precautions. Differential Diagnosis Differential Diagnoses: The differential diagnosis associated with the presentation includes rib fracture, contusion, head injury Admission/Observation Consideration of admission/observation: Escalation of care including admission/observation considered at baseline, no PTX, stable O2 - can be DC home Independent Interpretation I performed an independent interpretation of an: Plain X-Ray and CT Scan (no trauma) Radiology Impression Discussion of test interpretation with radiology: I have reviewed the radiologist's reading. Independent Historian Clinical information obtained from an independent historian. History obtained from or confirmed by: Other (family) External Record Review External record reviewed: Outpatient record Prescription Management I considered prescription management with: Pain Medication and Other Discharge Plan Discharge Clinical Impression: Contusion of rib on right side Qualifiers: Encounter type: initial encounter Qualified Code(s): S20.211A - Contusion of right front wall of thorax, initial encounter Head injury Qualifiers: Encounter type: initial encounter Qualified Code(s): S09.90XA - Unspecified injury of head, initial encounter Patient Disposition: Home, Self-Care Instructions: Head Injury (ED), Rib Contusion (ED) Additional Instructions: monitor for worsening symptoms, pain, cough, fevers, worsening pain, confusion or any other concerns xray read for right ribs is pending I will call if abnormal please return for pneumonia symptoms no heavy lifting more than 10lbs for 4 weeks. Prescriptions: New acetaminophen [Tylenol 8 Hour] 650 mg tablet extended release 650 mg PO Q8H PRN (Reason: pain (scale score 1-3)) Qty: 30 0RF lidocaine 5 % adhesive patch,medicated 1 patch topical DAILY Qty: 30 0RF Rx Instructions: leave on most painful area for up to 12 hrs No Action pioglitazone [Actos] 15 mg Tablet 15 mg PO DAILY atorvastatin 10 mg Tablet 10 mg PO DAILY glipizide 10 mg Tablet 10 mg PO BID clopidogrel [Plavix] 75 mg Tablet 75 mg PO DAILY lisinopril 10 mg Tablet 10 mg PO DAILY aspirin 81 mg Tablet,Chewable 81 mg PO DAILY quetiapine 25 mg tablet 25 mg PO BEDTIME melatonin 5 mg tablet 10 mg PO QPM (DME) lancets [TRUEplus Lancets] 33 gauge misc See Rx Instructions .ROUTE TID Qty: 100 Rx Instructions: As directed tamsulosin 0.4 mg capsule 0.4 mg PO BEDTIME Qty: 90 3RF Print Language: Samoan
[2024-12-10 20:34] VITALS: BP 133/77; PULSE 70; TEMP 36.6; O2SAT 98
[2024-12-10] MEDS: Lidocaine 4 % Patch ADH..PATCH 1 PATCH TRANSDERMA (21:59)
== END 2024-12-11 00:32 | disposition home or self-care (01) ==
PROVIDERS: Emergency Provider Emergency Medicine; PCP Family Medicine
DX: S20.211A Contusion of right front wall of thorax, initial encounter (principal); S09.90XA Unspecified injury of head, initial encounter; R07.89 Other chest pain; W18.2XXA Fall in (into) shower or empty bathtub, initial encounter; Y93.E1 Activity, personal bathing and showering; Y92.002 Bathroom of unspecified non-institutional (private) residence as the place of occurrence of the external cause; Y99.8 Other external cause status; Z91.81 History of falling; Z79.899 Other long term (current) drug therapy
CPT/HCPCS: 70450; 71100; 71101; 99283; 99284

== ENCOUNTER → 2024-12-10 16:24 | Outpatient (BNV) | payer OTHER, SELFPAY | PROVIDERS: PCP Family Medicine; Visit Provider Radiology Diagnostic Radiology | DX: S09.90XA Unspecified injury of head, initial encounter (principal); S22.41XA Multiple fractures of ribs, right side, initial encounter for closed fracture | CPT/HCPCS: 70450; 71101 ==

== ENCOUNTER 2025-02-01 15:33 | Outpatient (REF) | payer OTHER, SELFPAY ==
--- NOTE | ~2025-02-01 | US_ITS ---
EXAMINATION: Ultrasound renal, bilaterally. CLINICAL INFORMATION: Calculus of kidney. COMPARISON: February 10, 2017. Correlated to CT dated August 09, 2023 demonstrated bilateral nephrolithiasis. TECHNIQUE: Real-time ultrasound kidneys using grayscale technique. FINDINGS: Right kidney: 10 x 5 x 5 cm. Volume: 156 cc. Normal echotexture. Normal renal cortical thickness. No hydronephrosis. Focal, 4 mm hyperechoic abnormality with posterior shadowing in the upper pole. Left kidney: 11 x 5 x 5 cm. Volume: 155 cc. Normal echotexture. No hydronephrosis. Normal renal cortical thickness. 7 mm hyperechoic abnormality at the upper pole. US/US renal BI IMPRESSION: Bilateral nonobstructing nephrolithiasis. Electronically signed by: Jass Solorzano MD 02/01/2025 04:02 PM EDT
--- OUTSIDE RECORDS SUMMARY | 2025-02-01 15:35 | XMS_ITS | Clinical Summary ---
Author Organization [facility] Address [address] [address] Phone Care Team Providers Care Shell Sorter Name Role Phone Unavailable Primary Care Provider Unavailabl e Social History Tobacco Use Types Packs/Day Years Used Date Smoking Tobacco: Never Assessed Education Answer Date Recorded Are you interested in more education? Not on zuly e 10/29/2022 Are you concerned about learning? Not on file 10/29/2022 No 10/29/2022 No 10/29/2022 Digital Access Answer Date Recorded No 11/30/2022 No 11/30/2022 No 11/30/2022 Reliable internet access at home? Not on file 11/30/2022 Device with a working camera? Not on file Sex and Gender Information Value Date Recorded Sex Assigned at Not on file Legal Sex Male 4:37 PM EDT Gender Identity Not on file Sexual Orientation Not on file Plan of Treatment Health Maintenance Due Date Last Done Comments LIPID PANEL 1954 DEPRESSION SCREENING 1966 SMOKING Hx and SMOKELESS TOB ACCO SCREENING 1967 HEPATITIS C SCREENING 1972 COLOGUARD 1999 COLONOSCOPY 1999 COLORECTAL CANCER SCREENING 1999 FIT TEST 1999 FOBT 1999 SIGMOIDOSCOPY 1999 VIRTUAL COLONOSCOPY 1999 PNEUMOCOCCAL VACCINES (50+ y ears) (1 of 1 - PCV) 2004 ZOSTER VACCINES (2 of 3) 07/27/2017 06/01/2017 COVID-19 VACCINE ( - 2023-2 5 season) 2024 RSV VACCINE (1 - 1-dose 75+ series) 2029 Adult Td,Tdap Booster 08/31/2029 08/31/2019 HEPATITIS A VACCINES Aged Out No long er eligible based on patient's age to complete this topic HIB VACCINES Aged Out No longer eligi ble based on patient's age to complete this topic MENINGOCOCCAL VACCINES (ACWY) Aged Out No longer eligible based on patient's age to complete this topic MENINGOCOCCAL VACCINES (B) Aged Out N o longer eligible based on patient's age to complete this topic Medical Devices Not on file Additional Source Comments The information contained in this document represents components of the legal health record. It is not the complete legal health record.[facility]
--- OUTSIDE RECORDS SUMMARY | 2025-02-01 15:35 | XMS_ITS | Patient Health Record ---
Demographics Address [address] [facility] [address] [place] [address] Preferred Language Unknown Marital Status Unknown Yazidi Affiliation Unknown Race Ethnic Group or Author Organization [facility] Address [address] [place] [address] Support Name Relationship Address Phone Sandrita Hintonpe Emergency Contact [address] [facility] [address] [place] [address] SHER FRANCISCO Guarantor Unknown Care Team Providers Care Roustabout Supervisor Name Role Phone Siomara Sears Primary Care Provider UnavailIsmael De Jesus Unavailable [phone] Reason For Referral No Information Medications Medication SIG (Take, Route, Fr equency, Duration) Notes Start Date End Date Status metFORMIN HCl Active Atorvastatin Calcium Active glipiZIDE Active Ibuprofen Active Aspir-81 Active Cyclobenzaprine HCl Active Social History Tobacco Use: Social History Observation Description Date Details (start date - stop date) Current Smoker NA - NA Tobacco Use/Smoking Question Answer Notes Patient is a current smoker How often do you smoke cigarettes? every day How many cigarettes a day do you smoke? 5 or les s How soon after you wake up d o you smoke your first cigarette? after 60 minutes Are you interested in quitting? Thinking about q uitting Alcohol Screen Question Answer Notes Did you have a drink containing alcohol in the p ast year? No Points 0 Interpretation Negative Section Notes: Smoker; he denies any signif icant alcohol Problems Problem Type SNOMED Code ICD Code Onset Dates Problem Status W/U Status Risk Notes Problem [id number] Esophageal dysphagia (R13.10) Active confirmed Plan Of Treatment Future Test Test Name Order Date UPPER GI ENDOSCOPY [place] DILATION OF ESOPH 04/12/2017 Insurance Providers Payer Name Payer Address Payer Phone Subscriber Number Group Number Insured Name Patient Relationship to Insured Coverage Start Date Coverage End Date MEDICA[employer] OF [employer] [address] [place] [phone] [id number] SHER FRANCISCO Self - patient is the insured Medical (General) History Medical History History ICD Code NIDDM Hypertension Denies [place],CVA,Lung disease,renal disease BPH GERD Hyperlipidemia Chronic hepatitis C--he is s eeing a different physician in [place] for that on for an initial appointment--Genotype 1A Negative ETT in March 2017 Surgical History Surgery Date(Month/Year) Right inguinal hernia Lipoma
--- OUTSIDE RECORDS SUMMARY | 2025-02-01 15:35 | XMS_ITS | Clinical Summary ---
Author Organization [facility] Address [address] [place] [address] Care Team Providers Care Whipped Topping Finisher Name Role Phone Deja Gonzalez MD Primary Care Provider [phone] Allergies No known active allergies Medications Blood Glucose Monitoring Suppl (FreeStyle Lite) w/Device kitIndications:Ty pe 2 diabetes mellitus with hyperglycemia, without long-term current use of insulin ([facility]) 1 kit in the morning. 1 kit 4 Active Blood Pressure kitIndications:Es sential hypertension 1 kit 2 times daily. 1 kit 4 Active QUEtiapine (SEROquel) 25 MG tablet TAKE 1 TABLET BY MOUTH DAILY AT BEDTIME 30 tablet 1 5 Active glipiZIDE (Glucotrol) 10 MG tablet Take 1 tablet (10 mg) by mouth before breakfast and before evening meal. 180 tablet 3 5 Active atorvastatin (Lipitor) 10 MG tablet Take 1 tablet (10 mg) by mouth Once per day. 90 tablet 3 5 Active lisinopril 10 MG tablet Take 1 tablet (10 mg) by mouth Once per day. 90 tablet 3 5 Active pioglitazone (Actos) 15 MG tablet Take 1 tablet (15 mg) by mouth Once per day. 90 tablet 3 5 Active melatonin 5 MG tablet TAKE 2 TABLETS BY MOUTH EVERY DAY 2 TO 3 HOUR BEFORE BEDTIME 60 tablet 3 5 Active Aspirin Low Dose 81 MG EC tablet TAKE 1 TABLET BY MOUTH EVERY DAY IN THE MORNING 90 tablet 3 5 Active tamsulosin (Flomax) 0.4 MG 24 hr capsule take 1 capsule by mouth every day at bedtime Active Active Problems Problem Noted Date Diagnosed Date Kidney stones 07/20/2024 Assessment & Plan (07/20/2024 1:40 PM EST): - asymptomatic and non-obstructive - adequate hydration - follow up with urologist with renal US prior Urinary incontinence 07/20/2024 Assessment & Plan (11/13/2024 4:24 PM EDT): - multifactorial: BPH, dementia, decreased mobility - needs scripts for incontinence supplies Assessment & Plan (07/20/2024 1:46 PM EST): [...] artery disease). Depression 11/06/2023 Assessment & Plan (11/12/2024 5:09 PM EDT): - complicated due to mild cognitive impairment - currently taking quetiapine which was prescribed by neurologist for insomnia - consider referral to behavioral health service Assessment & Plan (07/20/2024 1:37 PM EST): [...] infarcts and leukoencephalopathy) 11/03/2023 Assessment & Plan (11/12/2024 5:09 PM EDT): - patient had CT scan and MRI in August 2023, suggested CADASIL, patient was evaluated by neurologist, no medication at this time, patient was prescribed quetiapine Assessment & Plan (07/13/2024 5:50 AM EST): [...] Peripheral arterial disease 08/19/2023 Assessment & Plan (11/12/2024 5:10 PM EDT): - possible claudication and diminished pulses b/l legs - obtain records from [place] regarding to CAD and PAD since patient is on clopidogrel - Abd/pelvis CT showed calcification in celiac artery - evaluate with arterial doppler (ordered in Aug 2023, still not completed. Reorder) - refer to vascular after the study - clopidogrel was discontinued by neurologist due to high bleeding risk - continue ASA Assessment & Plan (07/20/2024 1:44 PM EST): - possible claudication and diminished pulses b/l legs - obtain records from [place] regarding to CAD and PAD since patient [...] pulses b/l legs - obtain records from [place] regarding to CAD and PAD since patient is on clopidogrel - Abd/pelvis CT showed calcification in celiac artery - evaluate with arterial doppler - refer to vascular after the study - clopidogrel was discontinued by neurologist due to high bleeding risk - continue ASA Assessment & Plan (11/06/2023 7:09 AM EDT): - possible claudication and diminished pulses b/l legs - obtain records from [place] regarding to CAD and PAD since patient is on clopidogrel - Abd/pelvis CT showed calcification in celiac artery - evaluate with arterial doppler - refer to vascular after the study - clopidogrel was discontinued by neurologist due to high bleeding risk - continue ASA Assessment & Plan (08/19/2023 11:56 AM EST): - possible claudication and diminished pulses b/l legs - obtain records from [place] regarding to CAD and PAD since patient is on clopidogrel - Abd/pelvis CT showed calcification in celiac artery - evaluate with arterial doppler - refer to vascular after the study Positive hepatitis C antibody test 08/19/2023 Assessment & Plan (08/19/2023 11:58 AM EST): - limited PMH - will try to obtain records from [place] - check lab - slight elevation of [...] (benign prostatic hyperplasia) 08/18/2023 Assessment & Plan (11/13/2024 4:23 PM EDT): - 08/09/23 abd/pelvis CT showed prostamegaly - 11/04/23 PSA 1.91 - seen by Dr. 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 - non-urgent referral to [facility] for assistance in management Tobacco use 08/17/2023 Allergic rhinitis 06/01/2017 Chronic superficial gastritis 06/01/2017 Precordial pain 01/24/2017 Hyperlipidemia 11/23/2016 Assessment & Plan (11/12/2024 5:08 PM EDT): - Lipid profile: 11/09/24 total cholesterol 143; triglyceride 101; HDL 41; LDL 82 - Pt is currently taking atorvastatin 10 mg Assessment & Plan (07/13/2024 5:51 AM EST): [...] 11/19/2016 Essential hypertension 11/19/2016 Assessment & Plan (11/12/2024 5:10 PM EDT): -Goal BP < 140/90 per JNC-8 and < 130/80 per ACC/AHA guideline (Treatment threshold >= 130) -At goal without medication -Continue working on lifestyle modifications -Recommended self-monitoring BP. -Continue current medications: lisinopril 10 mg daily (will add parameter) -Treatment Hx: Unknown -Follow up in 3-6 mo, sooner if any problem arises Assessment & Plan (07/13/2024 5:50 AM EST): [...] 2 diabetes mellitus 11/19/2016 Assessment & Plan (11/12/2024 5:06 PM EDT): - Hgb A1C 7.1% on 11/12/24, improved from 7.6% on 07/10/24 - Continue working on lifestyle modifications - Continue checking glucose - Continue glipizide 10 mg bid with caution - Continue pioglitazone 15 mg daily - Obtain record to check if he has taken metformin in the past and the reason for discontinuation; consider restarting it if no contraindication - Microalbumin test: Ordered - Lipid profile: 11/09/24 total cholesterol 143; triglyceride 101; HDL 41; LDL 82 - Diabetic eye exam: 12/06/24 - Foot exam: 07/10/24 Likely PAD. High-risk. Assessment & Plan (07/20/2024 1:37 PM EST): [...] Dizziness 11/19/2016 Dysuria 11/19/2016 Esophageal dysphagia 11/19/2016 COPD (chronic obstructive pulmonary disease) Non dependent drug abuse 11/19/2016 Resolved Problems Problem Noted Date Diagnosed Date Resolved Date Unintentional weight loss 11/19/2016 Encounters Date Type Department Care Team Description 01/28/2025 Telephone [facility] MEDICINE [address] [place], [place] [phone] Deja Gonzalez MD 01/25/2025 Telephone [facility] MEDICINE [address], [place] [phone] Deja Gonzalez MD pre op 12/10/2024 Orders Only [facility] External Provider, [facility] 12/06/2024 3:00 PM EDT Office Visit [facility] OPTOMETRY [address] [place] [address] Yayo, Roselia, OD Diabetes type 2, no ocular involvement (CMS/HCC) (Primary Dx); Combined forms of age-related cataract of both eyes; Epiretinal membrane (ERM) of right eye; Presbyopia 12/06/2024 Travel 11/28/2024 Telephone [facility] MEDICINE [address] [place] [address] Ruth Hooks, RN Care Coordination 11/19/2024 Telephone [facility] CHC MED & PEDS [address] [place], [place] [phone] Deja Gonzalez MD 11/14/2024 Patient Outreach [facility] MEDICINE [address] [place] [address] Deja Gonzalez MD Care Coordination (CHW outreach for SDOH housing search-referral completed ) 11/12/2024 2:30 PM EDT Office Visit [facility] MEDICINE [address] [place] [address] Deja Gonzalez MD Mild dementia with other behavioral disturbance, unspecified dementia type (CMS/HCC) (Primary Dx); Essential hypertension; CADASIL (cerebral autosomal dominant arteriopathy with subcortical infarcts and leukoencephalopathy) ; Peripheral arterial disease ([facility]/HCC); Benign prostatic hyperplasia, unspecified whether lower urinary tract symptoms present; Urinary incontinence, unspecified type; Type 2 diabetes mellitus with hyperglycemia, without long-term current use of insulin (CMS/HCC); Mixed hyperlipidemia; Depression, unspecified depression type; Tobacco use; Colon cancer screening 11/12/2024 Travel 11/09/2024 Telephone [facility] MEDICINE [address], [place] [phone] Deja Gonzalez MD chartprep from Last 3 Months Immunizations Immunization Administration Dates Next Due Influenza injectable quadrivalent [...] What is your housing situation today? I am not s ure 11/12/[address] you li ve. Do you have problems with any of the following? Not on file 11/12/2024 Food Insecurity Answer Date Recorded Within the past 12 months, y ou worried that your food would run out before you got money to buy more: Sometimes True 2024 Within the past 12 months,th e food you bought just didn't last and you didn't have enough money to get more: Sometimes True 11/12/2024 Transportation Answer Date Recorded In the past 12 months, has l ack of transportation kept you from medical appts, meetings, work or from getting things needed for daily living? Yes, it has kept me from medical appointments or getting medications. 11/12/2024 Utilities Answer Date Recorded In the past 12 months, has t he electric, gas, oil or water company threatened to shut off services in your home? I am not sure 11/12/2024 Internet Access Answer Date Recorded Internet Access Q1 Yes 11/12/2024 Internet Access Q2 Not on file 11/12/2024 Sex and Gender Information Value Date Recorded Sex Assigned at Male 05/03/2022 10:31 AM EDT Legal Sex Male 10:31 AM EDT Gender Identity Male 08/17/2023 11:44 AM EST Sexual Orientation Straight 08/17/2023 11 :44 AM EST Last Filed Vital Signs Vital Sign Reading Time Taken Comments Blood Pressure 127/74 07/10/2024 4:06 PM EST Pulse 80 07/10/2024 4:06 PM EST Temperature 36.7 C (98.1 F) 07/10/2024 4:06 PM EST Respiratory Rate 19 07/10/2024 4:06 PM EST Oxygen Saturation 99% 07/10/2024 4:06 PM EST Inhaled Oxygen Concentration - - Weight 71.2 kg (157 lb) 07/10/2024 4:06 PM EST Height 173.6 cm (5' 8.33 ) 11/03/2023 10:54 AM E DT Body Mass Index 23.64 11/03/2023 10:54 AM EDT Plan of Treatment Upcoming Encounters Date Type Department Care Team (Late st Contact Info) Description 02/12/2025 3:15 PM EDT Office Visit [facility] MEDICINE [address] [place] [address] Deja Gonzalez MD [address] [place], [place] [phone] Health Maintenance Due Date Last Done Comments CT Colonography 1955 Colonoscopy 1955 Colorectal Cancer Screening 1955 Depression Screening 1955 FIT DNA/Cologuard 1955 FIT 1955 FOBT 1955 Sigmoidoscopy 1955 Pneumococcal Vaccine: 50+ Years (1 of 2 - PCV) 1973 RSV Patients and Patients Aged 60 years or older (1 - Risk 60-74 years 1-dose series) 2014 Zoster Vaccines (2 of 3) 07/27/2017 06/01/2017 Diabetes: Urine Protein Screening 09/02/2020 09/03/2019 COVID-19 Vaccine ( - season) 2024 11/03/2023 SDOH Screening 11/02/2024 11/03/2023 Diabetes: Hemoglobin A1C 02/12/2025 025, 07/10/2024, 02/15/2024, Additional history exists Influenza Vaccine (#1) 2025 08/31/2019, 2016 Alcohol/Substance Use Screening 07/10/2025 07/10/2024 Diabetes: Foot Exam 07/10/2025 07/10/2024, 08/18/2023, 08/18/2023 Lipid Panel 11/09/2025 11/09/2024, 08/09/2023 Tobacco Screening 12/10/2025 12/10/2024 Eye Exam 12/06/2026 12/06/2024, 06/11/2024, 12/06/2024, Additional history exists DTaP/Tdap/Td Vaccines (2 - Td or Tdap) [...] patient's age to complete this topic Meningococcal B Vaccine Aged Out No l onger eligible based on patient's age to complete this topic Meningococcal Vaccine Aged Out No sariah dottie eligible based on patient's age to complete this topic RSV under 20 months Aged Out No longe r eligible based on patient's age to complete this topic Rotavirus Vaccines Aged Out No longer eligible based on patient's age to complete this topic Procedures Procedure Name Priority Date/Time Associated Diagnosis Comments XR RIBS 2 VIEWS RIGHT Routine 12/10/2024 10:18 PM EDT XR RIBS 3 VIEWS LEFT W CHEST Routine 12/10/2024 5:[address] HEAD WO CONTRAST Routine 12/10/2024 3 :39 PM EDT POCT GLYCOSYLATED HEMOGLOBIN (HGB A1C) Routine 11/12/2024 2:55 PM EDT Type 2 diabetes mellitus with hyperglycemia, without long-term current use of insulin (CMS/HCC) POCT GLUCOSE Routine 11/12/2024 2:54 PM EDT Type 2 diabetes mellitus with hyperglycemia, without long-term current use of insulin (CMS/HCC) TSH W/REFLEX TO FT4 Routine 11/09/2024 1 2:04 PM EDT Mild dementia with other behavioral disturbance, unspecified dementia type (CMS/HCC) Essential hypertension COMPREHENSIVE METABOLIC PANEL Routine 11/09/2024 12:04 PM EDT Essential hypertension LIPID PANEL WITH REFLEX TO DIRECT LDL Routine 11/09/2024 12:04 PM EDT Type 2 diabetes mellitus with hyperglycemia, without long-term current use of insulin (CMS/HCC) Mixed hyperlipidemia VITAMIN B12/FOLATE, SERUM PANEL Routine 11/09/2024 12:04 PM EDT Mild dementia with other behavioral disturbance, unspecified dementia type (CMS/HCC) Type 2 diabetes mellitus with hyperglycemia, without long-term current use of insulin (CMS/HCC) HEPATITIS C AB W/REFL TO HCV RNA, QN, PCR Routine 08/18/2023 10:30 AM EST Pancreatic mass ZZZ HISTORICAL MICROALBUMIN, RANDOM Routine 09/03/2019 8:45 AM EST from Last 3 Months or Most Recently Relevant to Health Maintenance Results * XR Ribs 2 Views Right (12/10/2024 10:18 PM EDT) Anatomical Region Laterality Modality Rib, Abdomen Right Radiographic Annita ging 12/10/2024 10:1 8 PM EDT Narrative 12/10/2024 10:20 PM EDT [place] [address] XRay Report Signed Patient: Edmundo Manuel MR#: [id number] : 1955 Acct:[id number] Age/Sex: 69 / M ADM Date: 12/10/24 Loc: HO.ED Attending Dr: Ordering Physician: Kenyatta Mina DO Date of Service: 12/10/24 Procedure(s): XR ribs RT 2V Accession Number(s): [id number] cc: Kenyatta Mina DO; Deja Gonzalez MD CLINICAL HISTORY: pain, fall 4 view right ribs Comparison: None Findings: 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 Mild osteoarthritis of the right glenohumeral joint. Right lateral 8th and 9th rib fractures likely acute and nondisplaced. Mild bibasilar atelectasis. No pneumothorax or pleural effusion in the dijjd-tf-uzzz. Tortuosity thoracic aorta in the imaged mediastinum. IMPRESSION: 1. Acute nondisplaced right 8th and 9th rib fractures. 2. Degenerative changes include imaged right AC joint. This document has been electronically signed by: Dg Mooney MD on 12/10/2024 22:18:53 Dictated By: gD Mooney MD Signed By: <Electronically signed by Dg Mooney MD in OV> 12/10/242218 DD/ 17 TD/TT: 12/10/242217 Twisting Operator: Procedure Note Donotuseinterpreter, Image - 12/10/[address] [address] XRay Report Signed Patient: Edmundo Manuel RMR#: [id number] : 5Acct:[id number] Age/Sex: 69 / MADM Date: 12/10/24 Loc: HO.ED Attending Dr: Ordering Physician: Kenyatta Mina DO Date of Service: 12/10/24 Procedure(s): XR ribs RT 2V Accession Number(s): [id number] cc: Kenyatta Mina DO; Deja Gonzalez MD CLINICAL HISTORY: pain, fall 4 view right ribs Comparison: None Findings: 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 Mild osteoarthritis of the right glenohumeral joint. Right lateral 8th and 9th rib fractures likely acute and nondisplaced. Mild bibasilar atelectasis. No pneumothorax or pleural effusion in the dzyqu-hy-vhua. Tortuosity thoracic aorta in the imaged mediastinum. IMPRESSION: 1. Acute nondisplaced right 8th and 9th rib fractures. 2. Degenerative changes include imaged right AC joint. This document has been electronically signed by: Dg Mooney MD on 12/10/2024 22:18:53 Dictated By: Dg Mooney MD Signed By: <Electronically signed by Dg Mooney MD in OV> 12/10/242218 DD/ 17 TD/TT: 12/10/242217 Twisting Operator: us [facility] External Provider IMG XR PROCEDURES Edited Result - Final * XR Ribs 3 Views Left w/ Chest (12/10/2024 5:15 PM EDT) Anatomical Region Laterality Modality Radiographic Annita ging 12/10/2024 5:15 PM EDT Narrative 12/10/2024 5:15 PM EDT [address] [address] XRay Report Signed Patient: Edmundo Manuel MR#: [id number] : 1955 Acct:[id number] Age/Sex: 69 / M ADM Date: 12/10/24 Loc: HO.ED Attending Dr: Ordering Physician: Alexandre Menjivar Date of Service: 12/10/24 Procedure(s): XR ribs LT min 3V w CXR1V Accession Number(s): [id number] cc: Alexandre Menjivar; Deja Gonzalez MD CLINICAL HISTORY: trauma Radiographs of the chest and left ribs, 4 views Comparison: None Findings: No rib fracture or other acute osseous abnormality. Normal heart size. Normal mediastinal contours. No pneumothorax. No opacity. No pleural effusion. Normal upper abdomen. Impression: No rib fracture. This document has been electronically signed by: Caitie Fields MD on 12/10/2024 17:15:17 Dictated By: Caitie Parker MD Signed By: <Electronically signed by Caitie Parker MD in OV> 12/10/241714 DD/ 14 TD/TT: 12/10/241714 Twisting Operator: Procedure Note Donotuseinterpreter, Image - 12/10/[address] [address] XRay Report Signed Patient: Edmundo Manuel RMR#: [id number] : 5Acct:[id number] Age/Sex: 69 / MADM Date: 12/10/24 Loc: .ED Attending Dr: Ordering Physician: Alexandre Menjivar Date of Service: 12/10/24 Procedure(s): XR ribs LT min 3V w CXR1V Accession Number(s): [id number] cc: Alexandre Menjivar; Deja Gonzalez MD CLINICAL HISTORY: trauma Radiographs of the chest and left ribs, 4 views Comparison: None Findings: No rib fracture or other acute osseous abnormality. Normal heart size. Normal mediastinal contours. No pneumothorax. No opacity. No pleural effusion. Normal upper abdomen. Impression: No rib fracture. This document has been electronically signed by: Caitie Fields MD on 12/10/2024 17:15:17 Dictated By: Caitie Parker MD Signed By: <Electronically signed by Caitie Parker MD in OV> 12/10/241714 DD/ 14 TD/TT: 12/10/241714 Twisting Operator: [facility] External Provider IMG XR PROCEDURES Edited Result - Final * CT Head w/o Contrast (12/10/2024 3:39 PM EDT) Anatomical Region Laterality Modality Head, Neck Computed Tomogra phy 12/10/2024 3:39 PM EDT Narrative 12/10/2024 5:00 PM EDT [place] [address] CT Scan Report Signed Patient: Edmundo Manuel MR#: [id number] : 1955 Acct:[id number] Age/Sex: 69 / M ADM Date: 12/10/24 Loc: HO.ED Attending Dr: Ordering Physician: Alexandre Menjivar Date of Service: 12/10/24 Procedure(s): CT head/brain wo IV con Accession Number(s): [id number] cc: Alexandre Menjivar; Deja Gonzalez MD Report Number: [id number]: Total DLP = 700.00 mGy-cm EXAMINATION: CT HEAD WITHOUT CONTRAST CLINICAL INFORMATION: Trauma. On Plavix. COMPARISON: None available. TECHNIQUE: Contiguous axial imaging was performed from the skull base to vertex without intravenous administration of contrast. This CT examination was performed using dose optimization techniques as appropriate, variously including the following: *Automated exposure control *Adjustment of mA and/or kV according to patient size (this includes techniques or standardized protocols for targeted exams where dose is matched to indication/reason for exam; i.e. extremities or head) *Use of iterative reconstruction technique FINDINGS: There is no acute intra-axial, extra-axial bleed, masses or midline shift. There is no acute infarction in evolution without edema or mass effect. The lateral ventricles are symmetrical in size and configuration with mild prominence. There is diffuse periventricular hypodensity suggestive of chronic small vessel ischemic changes. Bone windows reveal no calvarial abnormality. There is no scalp soft tissue abnormality. Bilateral paranasal sinuses and mastoid air cells are well-aerated. CT/CT head/brain wo IV con IMPRESSION: No acute intracranial process seen. Electronically signed by: Elgin Mensah MD 12/10/2024 04:58 PM EDT RP Dictated By: Elgin Mensah MD Signed By: <Electronically signed by Elgin Mensah MD in OV> 12/10/24 1658 DD/ 1539 TD/TT: 12/10/24 1648 Twisting Operator: [facility] Procedure Note Donotuseinterpreter, Image - 12/10/[address] [place] [address] [address] Scan Report Signed Patient: Edmundo Manuel RMR#: [id number] : 5Acct:[id number] Age/Sex: 69 / MADM Date: 12/10/24 Loc: HO.ED Attending Dr: Ordering Physician: Alexandre Menjivar Date of Service: 12/10/24 Procedure(s): CT head/brain wo IV con Accession Number(s): [id number] cc: Alexandre Menjivar; Deja Gonzalez MD Report Number: [id number]: Total DLP = 700.00 mGy-cm EXAMINATION: CT HEAD WITHOUT CONTRAST CLINICAL INFORMATION: Trauma. On Plavix. COMPARISON: None available. TECHNIQUE: Contiguous axial imaging was performed from the skull base to vertex without intravenous administration of contrast. This CT examination was performed using dose optimization techniques as appropriate, variously including the following: *Automated exposure control *Adjustment of mA and/or kV according to patient size (this includes techniques or standardized protocols for targeted exams where dose is matched to indication/reason for exam; i.e. extremities or head) *Use of iterative reconstruction technique FINDINGS: There is no acute intra-axial, extra-axial bleed, masses or midline shift. There is no acute infarction in evolution without edema or mass effect. The lateral ventricles are symmetrical in size and configuration with mild prominence. There is diffuse periventricular hypodensity suggestive of chronic small vessel ischemic changes. Bone windows reveal no calvarial abnormality. There is no scalp soft tissue abnormality. Bilateral paranasal sinuses and mastoid air cells are well-aerated. CT/CT head/brain wo IV con IMPRESSION: No acute intracranial process seen. Electronically signed by: Elgin Mensah MD 12/10/2024 04:58 PM EDT Dictated By: Elgin Mensah MD Signed By: <Electronically signed by Elgin Mensah MD in OV> 12/10/24 1658 DD/ 1539 TD/TT: 12/10/24 1648 Twisting Operator: VINAYAK [facility] External Provider IMG CT PROCEDURES Edited Result - Final * (ABNORMAL) POCT glycosylated hemoglobin (Hgb A1c) (11/12/2024 2:55 PM EDT) Hemoglobin A1C 7.1(A) 4.0 - 6.0 % QC Media Lot # [id number] Lot# Expiration Date 359,738 Blood Capillary blood specimen / Unknown 11/12/2024 2:55 PM EDT Deja Gonzalez MD POINT OF CARE TEST ENTER/EDIT OR DERABLES Final Result * (ABNORMAL) POCT glucose manually resulted (11/12/2024 2:54 PM EDT) Glucose Blood, POC 223(A) 60 - 200 mg/dL QC Media Lot # [id number] Lot# Expiration Date [id number] Blood Capillary blood specimen / Unknown 11/12/2024 2:54 PM EDT Deja Gonzalez MD POINT OF CARE TEST ENTER/EDIT OR DERABLES Final Result * Vitamin B12 (Cobalamin) and Folate Panel, Serum (11/09/2024 12:04 PM EDT) Vitamin B12 468 200 - 900 pg/mL [facility] Comment:NORMAL 200-900 PG/ML INDETERMINATE 160-199 PG/ML DEFICIENT < 160 PG/ML Folate 12.9 > or = 4.0 ng/mL [facility] Comment:Reference Values:> o r = 4.0 ng/mL< 4.0 ng/mL suggests folate deficiency Methotrexate, aminopterin and folinic acid(leucovorin) are chemotherapeutic agents whose molecularstructures are similar to folate; therefore, the Architectfolate assay cannot be used for patients using these drugs. Blood 11/09/2024 12:0 4 PM EDT 11/09/2024 1:17 PM EDT Deja Gonzalez MD LAB BLOOD ORDERABLES Final Resul t Performing Organization Address City/[facility]/ZIP Co de Phone Number [facility] [address] [place] [address] [phone] * TSH with Reflex to Free T4 (11/09/2024 12:04 PM EDT) TSH reflex Free T4 1.36 0.32 - 4.0 uIU/mL [facility] Blood 11/09/2024 12:0 4 PM EDT 11/09/2024 1:12 PM EDT Deja Gonzalez MD LAB BLOOD ORDERABLES Final Resul t Performing Organization Address City/[facility]/ZIP Co de Phone Number [facility] [address] [place] [phone] * Lipid Panel with Reflex to Direct LDL (11/09/2024 12:04 PM EDT) Triglycerides 101 <150 mg/dL [facility] Comment:Desirable Triglyceri de: less than 150 mg/dLBorderline High Triglyceride 150-199 mg/dLHigh Triglyceride: 200-499 mg/dLVery High Triglyceride: greater than or equal to 5OO mg/dL Cholesterol 143 <200 mg/dL [facility] Comment:Desirable Cholestero l: less than 200 mg/dLBorderline High Cholesterol: 200-239 mg/dLHigh Cholesterol: greater than 239 mg/dL LDL Cholesterol Calculated 82 <100 mg/dL [facility] Comment:Desirable LDL: less than 100 mg/dLNear Optimal/Above Optimal LDL: 110- 129 mg/dLBorderline High LDL: 130-159 mg/dLHigh LDL: 160-189 mg/dLVery High LDL: greater than or equal to 190 mg/dL HDL Cholesterol 41 >40 mg/dL [facility] Comment:Desirable HDL: great er than 40 mg/dL Note: This HDL assay may give artificially low results in patients with liver disease. Blood 11/09/2024 12:0 4 PM EDT 11/09/2024 1:12 PM EDT us Deja Gonzalez MD LAB BLOOD ORDERABLES Final Resul t [facility] [address] [place] [phone] * (ABNORMAL) Comprehensive Metabolic Panel (11/09/2024 12:04 PM EDT) Sodium 134(L) 135 - 145 mmol/L [facility] Potassium 4.0 3.3 - 5.1 mmol/L [facility] Chloride 99 96 - 108 mmol/L [facility] Carbon Dioxide 28 22 - 29 mmol/L [facility] Anion Gap 11(L) 12 - 20 [facility] Urea Nitrogen (BUN) 19(H) 9 - 16 mg/dL [facility] Creatinine, Serum 1.07 0.5 - 1.4 mg/dL [facility] Estimated Glomerular Filt Rate >60 [facility] Comment:Chronic Kidney Disea se: Estimated GFR < 60 mL/min/1.93x1Tyixmj Kidney Disease: Estimated GFR < 15 mL/min/1.73m2 Glucose 180(H) 60 - 115 mg/dL [facility] Calcium 9.5 8.4 - 10.2 mg/dL [facility] Bilirubin, Total 0.4 0.0 - 1.0 mg/dL [facility] Aspartate Amino Transferase 24 5 - 37 U/L [facility] Alanine Aminotransferase 22 0 - 40 U/L [facility] Total Protein 7.7 6.5 - 8.0 g/dL [facility] Albumin Level 4.3 3.5 - 5.0 g/dL [facility] Alkaline Phosphatase 82 39 - 117 U/L [facility] Blood Venous blood specimen / Unknown 11/09/2024 12:04 PM EDT 11/09/2024 1:12 PM EDT us Deja Gonzalez MD LAB BLOOD ORDERABLES Final Resul t Performing Organization Address [facility] Co de Phone Number [facility] [address] [place] [phone] * (ABNORMAL) Hepatitis C Antibody with Reflex to HCV, RNA, Quantitative, Real- Time PCR (08/18/2023 10:30 AM EST) Hepatitis C Antibody Reactive( A) Nonreactive [facility] Comment:Presumptive evidence of antibodies to HCV. Blood Venous blood specimen / Unknown 08/18/2023 10:30 AM EST 08/18/2023 11:23 AM EST Deja Gonzalez MD LAB BLOOD ORDERABLES Final Resul t Performing Organization Address [facility] Co de Phone Number [facility] [address] [place] [phone] * MICROALBUMIN, RANDOM (09/03/2019 8:45 AM EST) CREATININE, RANDOM URINE 137.27 MG/DL [facility]/CRE RATIO RANDOM URINE 12.3 ug/mg cr [facility] Comment: Albumin/Creatinine Ratio Reference Ranges: Normal: < 30 ug/mg creatinine Microalbuminuria: 30 - 300 ug/mg creatinine Clinical Albuminuria: > 300 ug/mg creatinine MICROALBUMIN, RANDOM URINE 17.0 MG/L [facility] 09/03/2019 8:45 AM EST us Yuki Asher ANP HISTORICAL/NON ORDERABLE LABS Fi nal Result [facility] [address] from Last 3 Months or Most Recently Relevant to Health Maintenance Insurance [facility] INTERMEDIATE OPTIONS (HMO D-SNP) JOHN FRIEDMAN [id number] Care Teams Whipped Topping Finisher Relationship Specialty Start Date End Date Deja Gonzalez MD [address] [place] [address] PCP - General Family Medicine 08/18/23
== END 2025-02-01 15:34 | disposition home or self-care (01) ==
LOC: HO.US 15:33
PROVIDERS: PCP Family Medicine; Visit Provider Urology
DX: N20.0 Calculus of kidney (principal)
CPT/HCPCS: 76775

== ENCOUNTER → 2025-02-01 15:35 | Outpatient (BNV) | payer OTHER, SELFPAY | PROVIDERS: PCP Family Medicine; Visit Provider Radiology Diagnostic Radiology | DX: N20.0 Calculus of kidney (principal) | CPT/HCPCS: 76775 ==

== ENCOUNTER 2025-03-07 15:11 | Outpatient (AMB) | payer OTHER, SELFPAY ==
--- NOTE | 2025-03-07 15:35 | A.OFFVIS_ITS ---
Intake Visit Reasons: 6m/US Intake Note: Patient is present for 6m/US * Renal US 02/01 Urology Med: Tamsulosin Antibiotic Allergy: None Blood Thinner: Aspirin, Plavix Uniforms Sales Representative Required: Yes Uniforms Sales Representative Language: Parts Cleaner Name: Kristen Hankins Information Interpreted: non-clinical & clinical Accompanied by: Daughter Allergies No Known Allergies Allergy (Verified 03/07/25 15:39) Medication List - Last Reconciled 03/07/25 by Farida Martin MD acetaminophen ER (Tylenol 8 Hour) 650 mg PO Q8H PRN aspirin 81 mg PO DAILY atorvastatin 10 mg PO DAILY clopidogrel (Plavix) 75 mg PO DAILY glipizide 10 mg PO BID lancets (TRUEplus Lancets) As directed lidocaine 5% 1 patch topical DAILY lisinopril 10 mg PO DAILY melatonin 10 mg PO QPM pioglitazone (Actos) 15 mg PO DAILY quetiapine 25 mg PO BEDTIME tamsulosin 0.4 mg PO BEDTIME HPI Comments Details: 03/07/25-- History of Present Illness The patient is a 69-year-old male presenting for follow-up of Benign Prostatic Hyperplasia and kidney stones. The patient has a history of Benign Prostatic Hyperplasia (BPH) and is currently taking tamsulosin daily to manage symptoms. He denies any current problems with urination, and his urine analysis appears normal. His prostate-specific antigen (PSA) levels were checked last year and were normal. The patient also has a history of kidney stones, with a recent renal ultrasound showing a 4 mm stone in the right kidney and a 7 mm stone in the left kidney. These stones are stable, and the patient reports no flank pain or other symptoms associated with kidney stones. Results - Renal ultrasound: 02/01/25--4 mm stone in the right kidney, 7 mm stone in the left kidney, stable size. - PSA test: Normal results from last year. Plan 1. Benign Prostatic Hyperplasia (Bph) - Continue tamsulosin daily. - Follow-up in one year. - Check PSA at next visit. 2. Kidney Stones - Monitor kidney stones with follow-up ultrasound as needed. - No immediate intervention required as stones are stable and asymptomatic. 07/02/24--Edmundo is here for new patient evaluation, he presents with his daughter Stacia who states that her father has dementia. I have discussed that I reviewed CT scan August 2023 bilateral small kidney stones nonobstructing. The patient has been on tamsulosin since August I will continue to fill this medication. He denies any pain or blood with urination. PSA 11/04/23--1.91 ng/mL. Will monitor kidney stones for now follow-up in 6 months renal ultrasound prior. [facility] Medical History Mass of pancreas Dementia Generalized weakness Confusional state BPH (benign prostatic hyperplasia) Pancreatic lesion Dementia Pancreatic cancer Hypertension Diabetes mellitus Surgical History History of hernia repair S/P right knee arthroscopy Social History Household Members: Family Unable to assess alcohol history related to: Unknown Alcohol intake: former Patient Tobacco Use Status: Tobacco use Unknown Advance Directives Date on File: 08/12/23 service: No Review of Systems Const All systems reviewed & are unremarkable except as noted in HPI and below Reports no additional complaints Eyes Reports no additional complaints ENT Reports no additional complaints Card Reports no additional complaints Resp Reports no additional complaints GI Reports no additional complaints Reports as per HPI Musc Reports no additional complaints Skin/Breast Reports system reviewed and no additional complaints, except as documented Neuro Reports no additional complaints Psych Reports no additional complaints Endo Reports no additional complaints Hugh/Lymph Reports no additional complaints Aller/Immun Reports no additional complaints Results Reviewed Results Reviewed: Date of Service: 02/01/25 EXAMINATION: Ultrasound renal, bilaterally. CLINICAL INFORMATION: Calculus of kidney. COMPARISON: February 10, 2017. Correlated to CT dated August 09, 2023 demonstrated bilateral nephrolithiasis. TECHNIQUE: Real-time ultrasound kidneys using grayscale technique. FINDINGS: Right kidney: 10 x 5 x 5 cm. Volume: 156 cc. Normal echotexture. Normal renal cortical thickness. No hydronephrosis. Focal, 4 mm hyperechoic abnormality with posterior shadowing in the upper pole. Left kidney: 11 x 5 x 5 cm. Volume: 155 cc. Normal echotexture. No hydronephrosis. Normal renal cortical thickness. 7 mm hyperechoic abnormality at the upper pole. US/US renal BI IMPRESSION: Bilateral nonobstructing nephrolithiasis. Assessment & Plan Assessment & Plan (1) BPH loc w urin obs/LUTS: Code(s): N40.1 - Benign prostatic hyperplasia with lower urinary tract symptoms Category: Medical (2) Bilateral kidney stones: Code(s): N20.0 - Calculus of kidney Category: Medical Plan tamsulosin 0.4 mg at bedtime, PSA screening Orders: Orders AMB Urinalysis Automated Today N40.1 - Benign prostatic hyperplasia with lower urinary tract symptoms, Z13.9 - Encounter for screening, unspecified PSA,Total (Free>4and<10) 11 Months N40.1 - Benign prostatic hyperplasia with lower urinary tract symptoms Medications: Refilled tamsulosin 0.4 mg PO BEDTIME 90 caps 3RF for prostate Patient Instructions: The patient had an opportunity to ask questions regarding treatment plan. The patient expressed understanding and agreement with the above treatment plan. The patient is aware they should contact our office by phone for worsening of their current condition or the appearance of new symptoms. Compliance is encouraged with any medications and followup testing that is ordered. It is a privilege to be allowed the opportunity to participate in the urologic care of your patient. If you have any questions or concerns regarding treatment for the above conditions please do not hesitate to contact me. The office telephone contact is [phone]. This note is constructed in part using voice recognition software. While every effort has been made to ensure accuracy field representatives director errors may have been included. Yours sincerely, Farida Martin MD Scribe Plan - Not visible on output: Patient was informed and verbally consented to the use of an ambient scribe for clinic note documentation during this visit. Coding Level of Care Code Est Pt Level 3 (16756) Diagnoses BPH loc w urin obs/LUTS N40.1 Bilateral kidney stones N20.0
--- OUTSIDE RECORDS SUMMARY | 2025-03-07 16:14 | XMS_ITS | Clinical Summary ---
Author Organization [employer] Address [address] [place] [address] Care Team Providers Care Central Sterilization Technician Name Role Phone Deja Gonzalez MD Primary Care Provider [phone] Allergies No known active allergies Medications Blood Glucose Monitoring Suppl (FreeStyle Lite) w/Device kitIndications:T ype 2 diabetes mellitus with hyperglycemia, without long-term current use of insulin ([facility]) 1 kit in the morning. 1 kit 08/25/19 24 Active Blood Pressure kitIndications:E ssential hypertension 1 kit 2 times daily. 1 kit 09/12/19 24 Active QUEtiapine (SEROquel) 25 MG tablet [...] day. 90 tablet 3 08/29/19 25 Active Aspirin Low Dose 81 MG EC tablet TAKE 1 TABLET BY MOUTH EVERY DAY IN THE MORNING 90 tablet 3 10/17/19 25 Active tamsulosin (Flomax) 0.4 MG 24 hr capsule take 1 capsule by mouth every day at bedtime 09/11/19 25 Active melatonin 5 MG tablet TAKE 2 TABLETS BY MOUTH EVERY DAY 2 TO 3 HOURS BEFORE BEDTIME 60 tablet 3 02/09/20 25 Active melatonin 5 MG tablet TAKE 2 TABLETS BY MOUTH EVERY DAY 2 TO 3 HOUR BEFORE BEDTIME 60 tablet 3 09/22/19 25 025 Discontinued Active Problems Problem Noted Date [...] pulses b/l legs - [place] CAD and PAD since patient [...] pulses b/l legs - [place] to CAD and PAD since patient [...] pulses b/l legs - [place] to CAD and PAD since patient is on clopidogrel - Abd/pelvis CT showed calcification in celiac artery - evaluate with arterial doppler - refer to vascular after the study - clopidogrel was discontinued by neurologist due to high bleeding risk - continue ASA Assessment & Plan (11/06/2023 7:09 AM EDT): - possible claudication and diminished pulses b/l legs - [place] to CAD and PAD since patient is on clopidogrel - Abd/pelvis CT showed calcification in celiac artery - evaluate with arterial doppler - refer to vascular after the study - clopidogrel was discontinued by neurologist due to high bleeding risk - continue ASA Assessment & Plan (08/19/2023 11:56 AM EST): - possible claudication and diminished pulses b/l legs - [place] to CAD and PAD since patient is on clopidogrel - Abd/pelvis CT showed calcification in celiac artery - evaluate with arterial doppler - refer to vascular after the study Positive hepatitis C antibody test 08/19/2023 Assessment & Plan (08/19/2023 11:58 AM EST): - limited PMH - will try to obtain records from [place] - check lab - slight elevation of [...] the left cerebellum, right thalamus, and right satnana radiata. Moderate global cerebral volume loss. DDx [...] IPMN not malignancy - non-urgent referral to [facility] for assistance in management Tobacco use [...] Encounters Date Type Department Care Team Description 02/11/2025 Telephone [facility] MEDICINE [address] [place] [address] Deja Gonzalez MD chartprep 02/08/2025 Refill [facility] MEDICINE [address] [place] [address] Deja Gonzalez MD 02/01/2025 Orders Only [facility] External Provider, [facility] 01/28/2025 Telephone [facility] MEDICINE [address] [place] [address] Deja Gonzalez MD 01/25/2025 Telephone [facility] MEDICINE [address] [place] [address] Deja Gonzalez MD pre op 12/10/2024 Orders Only [facility] External Provider, [facility] 12/06/2024 3:00 PM EDT Office Visit [facility] OPTOMETRY [address] [place] [address] Yayo, Roselia, OD Diabetes type 2, no ocular involvement (CMS/HCC) (Primary Dx); Combined forms of age-related cataract of both eyes; Epiretinal membrane (ERM) of right eye; Presbyopia 12/06/2024 Travel from Last 3 Months Immunizations Immunization Administration [...] Care Team (Late st Contact Info) Description 03/18/2025 11:30 AM EDT Office Visit [facility] MEDICINE [address] [place] [address] Deja Gonzalez MD [address] [place] [address] Health Maintenance Due Date Last Done Comments [...] 06/01/2017 Diabetes: Urine Protein Screening 09/02/2020 09/03/2019 SDOH Screening 11/02/2024 11/03/2023 Diabetes: Hemoglobin A1C 02/12/2025 025, 07/10/2024, 02/15/2024, Additional history exists COVID-19 Vaccine (2 - season) 2025 11/03/2023 Influenza Vaccine (#1) 2025 08/31/2019, 2016 Alcohol/Substance Use Screening 07/10/2025 07/10/2024 Diabetes: Foot Exam 07/10/2025 07/10/2024, 08/18/2023, 08/18/2023 Lipid Panel 11/09/2025 11/09/2024, 08/09/2023 Tobacco Screening 12/10/2025 12/10/2024 Eye Exam 12/06/2026 12/06/2024, 06/0 11/2024, 12/06/2024, Additional history exists DTaP/Tdap/Td Vaccines (2 [...] Procedure Name Priority Date/Time Associated Diagnosis Comments US RENAL COMPLETE Routine 02/01/2025 3:4 4 PM EDT XR RIBS 2 VIEWS RIGHT Routine 12/10/2024 10:18 PM EDT XR RIBS 3 VIEWS LEFT W CHEST Routine 12/10/2024 5:[address] HEAD WO CONTRAST Routine 12/10/2024 3 :39 PM EDT POCT GLYCOSYLATED HEMOGLOBIN (HGB A1C) Routine 11/12/2024 2:55 PM EDT Type 2 diabetes mellitus with hyperglycemia, without long-term current use of insulin (CMS/HCC) LIPID PANEL WITH REFLEX TO DIRECT LDL Routine 11/09/2024 12:04 PM EDT Type 2 diabetes mellitus with hyperglycemia, without long-term current use of insulin (CMS/HCC) Mixed hyperlipidemia HEPATITIS C AB W/REFL TO HCV RNA, QN, PCR Routine 08/18/2023 10:30 AM EST Pancreatic mass ZZZ HISTORICAL MICROALBUMIN, RANDOM Routine 09/03/2019 8:45 AM EST from Last 3 Months or Most Recently Relevant to Health Maintenance Results * US Renal Complete (02/01/2025 3:44 PM EDT) Anatomical Region Laterality Modality Kidney Ultrasound 02/01/2025 3:44 PM EDT Narrative 02/01/2025 4:05 PM EDT [address] [address] Ultrasound Report Signed Patient: Edmundo Manuel MR#: [id number] : 1955 Acct:[id number] Age/Sex: 69 / M ADM Date: 02/01/25 Loc: HO.US Attending Dr: Farida Martin MD Ordering Physician: Farida Martin MD Date of Service: 02/01/25 Procedure(s): US renal BI Accession Number(s): [id number] cc: Farida Martin MD; Deja Gonzalez MD EXAMINATION: Ultrasound renal, bilaterally. CLINICAL INFORMATION: Calculus of kidney. COMPARISON: February 10, 2017. Correlated to CT dated August 09, 2023 demonstrated bilateral nephrolithiasis. TECHNIQUE: Real-time ultrasound kidneys using grayscale technique. FINDINGS: Right kidney: 10 x 5 x 5 cm. Volume: 156 cc. Normal echotexture. Normal renal cortical thickness. No hydronephrosis. Focal, 4 mm hyperechoic abnormality with posterior shadowing in the upper pole. Left kidney: 11 x 5 x 5 cm. Volume: 155 cc. Normal echotexture. No hydronephrosis. Normal renal cortical thickness. 7 mm hyperechoic abnormality at the upper pole. US/US renal BI IMPRESSION: Bilateral nonobstructing nephrolithiasis. Electronically signed by: Jass Solorzano MD 02/01/2025 04:02 PM EDT RP Dictated By: Jass Oglesby MD Signed By: <Electronically signed by Jass Hooks MD in OV> 02/01/25 1602 DD/ 1544 TD/TT: 02/01/25 1551 Mobile Ui Designer: Procedure Note Donotuseinterpreter, Image - 02/01/2025 [place] [address] Ultrasound Report Signed Patient: Edmundo Manuel RMR#: [id number] : 5Acct:[id number] Age/Sex: 69 / MADM Date: 02/01/25 Loc: HO.US Attending Dr: Farida Martin MD Ordering Physician: Farida Martin MD Date of Service: 02/01/25 Procedure(s): US renal BI Accession Number(s): [id number] cc: Farida Martin MD; Deja Gonzalez MD EXAMINATION: Ultrasound renal, bilaterally. CLINICAL INFORMATION: Calculus of kidney. COMPARISON: February 10, 2017. Correlated to CT dated August 09, 2023 demonstrated bilateral nephrolithiasis. TECHNIQUE: Real-time ultrasound kidneys using grayscale technique. FINDINGS: Right kidney: 10 x 5 x 5 cm. Volume: 156 cc. Normal echotexture. Normal renal cortical thickness. No hydronephrosis. Focal, 4 mm hyperechoic abnormality with posterior shadowing in the upper pole. Left kidney: 11 x 5 x 5 cm. Volume: 155 cc. Normal echotexture. No hydronephrosis. Normal renal cortical thickness. 7 mm hyperechoic abnormality at the upper pole. US/US renal BI IMPRESSION: Bilateral nonobstructing nephrolithiasis. Electronically signed by: Jass Solorzano MD 02/01/2025 04:02 PM EDT Dictated By: Jass Oglesby MD Signed By: <Electronically signed by Jass Hooks MDin OV> 02/01/25 1602 DD/ 1544 TD/TT: 02/01/25 1551 Mobile Ui Designer: us [facility] External Provider IMG US PROCEDURES Final Result * XR Ribs 2 Views Right (12/10/2024 10:18 PM EDT) Anatomical Region Laterality Modality Rib, Abdomen Right Radiographic Annita ging 12/10/2024 10:1 8 PM EDT Narrative 12/10/2024 10:20 PM EDT [address] [address] XRay Report Signed Patient: Edmundo Manuel MR#: [id number] : 1955 Acct:[id number] Age/Sex: 69 / M ADM Date: 12/10/24 Loc: HO.ED Attending Dr: Ordering Physician: Kenyatta Mina DO Date of Service: 12/10/24 Procedure(s): XR ribs RT 2V Accession Number(s): [id number] cc: Kenyatta Mina DO; Deja Gonzalez MD CLINICAL HISTORY: pain, fall 4 view right ribs Comparison: None Findings: 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 Mild osteoarthritis of the right glenohumeral joint. Right lateral 8th and 9th rib fractures likely acute and nondisplaced. Mild bibasilar atelectasis. No pneumothorax or pleural effusion in the hjhoo-ch-txcl. Tortuosity thoracic aorta in the imaged mediastinum. IMPRESSION: 1. Acute nondisplaced right 8th and 9th rib fractures. 2. Degenerative changes include imaged right AC joint. This document has been electronically signed by: Dg Mooney MD on 12/10/2024 22:18:53 Dictated By: Dg Mooney MD Signed By: <Electronically signed by Dg Mooney MD in OV> 12/10/242218 DD/ 17 TD/TT: 12/10/242217 Mobile Ui Designer: Procedure Note Donotuseinterpreter, Image - 12/10/2024 [place] [address] XRay Report Signed Patient: Edmundo Manuel RMR#: [id number] : 5Acct:[id number] Age/Sex: 69 / MADM Date: 12/10/24 Loc: .ED Attending Dr: Ordering Physician: Kenyatta Mina DO Date of Service: 12/10/24 Procedure(s): XR ribs RT 2V Accession Number(s): [id number] cc: Kenyatta Mina DO; Deja Gonzalez MD CLINICAL HISTORY: pain, fall 4 view right ribs Comparison: None Findings: 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 Mild osteoarthritis of the right glenohumeral joint. Right lateral 8th and 9th rib fractures likely acute and nondisplaced. Mild bibasilar atelectasis. No pneumothorax or pleural effusion in the ljeml-on-fxlp. Tortuosity thoracic aorta in the imaged mediastinum. IMPRESSION: 1. Acute nondisplaced right 8th and 9th rib fractures. 2. Degenerative changes include imaged right AC joint. This document has been electronically signed by: Dg Mooney MD on 12/10/2024 22:18:53 Dictated By: Dg Mooney MD Signed By: <Electronically signed by Dg Mooney MD in OV> 12/10/242218 DD/ 17 TD/TT: 12/10/242217 Mobile Ui Designer: [facility] External Provider IMG XR PROCEDURES Edited Result - Final * XR Ribs 3 Views Left w/ Chest (12/10/2024 5:15 PM EDT) Anatomical Region Laterality Modality Radiographic Annita ging 12/10/2024 5:15 PM EDT Narrative 12/10/2024 5:15 PM EDT [address] [address] XRay Report Signed Patient: Edmundo Manuel MR#: [id number] : 1955 Acct:[id number] Age/Sex: 69 / M ADM Date: 12/10/24 Loc: HO.ED Attending Dr: Ordering Physician: Alexandre Menjivar Date of Service: 12/10/24 Procedure(s): XR ribs LT min 3V w CXR1V Accession Number(s): [id number] cc: Alexandre Menjivar; Deja Gonzalez MD CLINICAL [...] in OV> 12/10/241714 DD/ 14 TD/TT: 12/10/241714 Mobile Ui Designer: Procedure Note Donotuseinterpreter, Image - 12/10/[address] [address] XRay Report Signed Patient: Edmundo Manuel RMR#: [id number] : 5Acct:[id number] Age/Sex: 69 / MADM Date: 12/10/24 Loc: HO.ED Attending Dr: Ordering Physician: Alexandre Menjivar Date of Service: 12/10/24 Procedure(s): XR ribs LT min 3V w CXR1V Accession Number(s): [id number] cc: Alexandre Menjivar; Deja Gonzalez MD CLINICAL [...] in OV> 12/10/241714 DD/ 14 TD/TT: 12/10/241714 Mobile Ui Designer: [facility] External Provider IMG XR PROCEDURES Edited Result - Final * CT Head w/o Contrast (12/10/2024 3:39 PM EDT) Anatomical Region Laterality Modality Head, Neck Computed Tomogra phy 12/10/2024 3:39 PM EDT Narrative 12/10/2024 5:00 PM EDT [address] [address] [address] Scan Report Signed Patient: Edmundo Manuel MR#: [id number] : 1955 Acct:[id number] Age/Sex: 69 / M ADM Date: 12/10/24 Loc: HO.ED Attending Dr: Ordering Physician: Alexandre Menjivar Date of Service: 12/10/24 Procedure(s): CT head/brain wo IV con Accession Number(s): [id number] cc: Alexandre Menjivar; Deja Gonzalez MD Report Number: [id number]: Total DLP = 700.00 mGy-cm EXAMINATION: CT [...] 12/10/24 1658 DD/ 1539 TD/TT: 12/10/24 1648 Mobile Ui Designer: [facility] Procedure Note Donotuseinterpreter, Image - 12/10/[address] [address] [address] Scan Report Signed Patient: Edmundo Manuel RMR#: [id number] : 5Acct:[id number] Age/Sex: 69 / MADM Date: 12/10/24 Loc: HO.ED Attending Dr: Ordering Physician: Alexandre Menjivar Date of Service: 12/10/24 Procedure(s): CT head/brain wo IV con Accession Number(s): [id number] cc: Alexandre Menjivar; Deja Gonzalez MD Report Number: [id number]: Total DLP = 700.00 mGy-cm EXAMINATION: CT [...] 12/10/24 1658 DD/ 1539 TD/TT: 12/10/24 1648 Mobile Ui Designer: VINAYAK [facility] External Provider IMG CT PROCEDURES Edited Result - Final * (ABNORMAL) POCT glycosylated hemoglobin (Hgb A1c) (11/12/2024 2:55 PM EDT) Hemoglobin A1C 7.1(A) 4.0 - 6.0 % QC Media Lot # [id number] Lot# Expiration Date [id number] Blood Capillary blood specimen / Unknown 11/12/2024 2:55 PM EDT Deja Gonzalez MD POINT OF CARE TEST ENTER/EDIT OR DERABLES Final Result * Lipid Panel with Reflex to Direct LDL (11/09/2024 12:04 PM EDT) Triglycerides 101 <150 mg/dL [facility] Comment:Desirable Triglyceri de: less than 150 mg/dLBorderline High Triglyceride 150-199 mg/dLHigh Triglyceride: 200-499 mg/dLVery High Triglyceride: greater than or equal to 5OO mg/dL Cholesterol 143 <200 mg/dL [facility] Comment:Desirable Cholestero l: less than 200 mg/dLBorderline High Cholesterol: 200-239 mg/dLHigh Cholesterol: greater than 239 mg/dL LDL Cholesterol Calculated 82 <100 mg/dL [facility] Comment:Desirable LDL: less than 100 mg/dLNear Optimal/Above Optimal LDL: 110- 129 mg/dLBorderline High LDL: 130-159 mg/dLHigh LDL: 160-189 mg/dLVery High LDL: greater than or equal to 190 mg/dL HDL Cholesterol 41 >40 mg/dL [facility] Comment:Desirable HDL: great er than 40 mg/dL Note: This HDL assay may give artificially low results in patients with liver disease. Blood 11/09/2024 12:0 4 PM EDT 11/09/2024 1:12 PM EDT Deja Gonzalez MD LAB BLOOD ORDERABLES Final Resul t [facility] [address] [place] [phone] * (ABNORMAL) Hepatitis C Antibody with Reflex to HCV, RNA, Quantitative, Real- Time PCR (08/18/2023 10:30 AM EST) Hepatitis C Antibody Reactive( A) Nonreactive [facility] Comment:Presumptive evidence of antibodies to HCV. Blood Venous blood specimen / Unknown 08/18/2023 10:30 AM EST 08/18/2023 11:23 AM EST us Deja Gonzalez MD LAB BLOOD ORDERABLES Final Resul t Performing Organization Address City/[facility]/ZIP Co de Phone Number [facility] [address] [place] [address] [phone] * MICROALBUMIN, RANDOM (09/03/2019 8:45 AM EST) CREATININE, RANDOM URINE 137.27 MG/DL [facility] MICALB/CRE RATIO RANDOM URINE 12.3 ug/mg cr [facility] Comment: Albumin/Creatinine Ratio Reference Ranges: Normal: < 30 ug/mg creatinine Microalbuminuria: 30 - 300 ug/mg creatinine Clinical Albuminuria: > 300 ug/mg creatinine MICROALBUMIN, RANDOM URINE 17.0 MG/L [facility] 09/03/2019 8:45 AM EST us Yuki Asher ANP HISTORICAL/NON ORDERABLE LABS Fi nal Result Performing Organization Address City/[facility] Co de Phone Number [facility] [address] from Last 3 Months or Most Recently Relevant to Health Maintenance Insurance [facility] [employer] (O D-SNP) JOHN FRIEDMAN [id number] Care Teams Central Sterilization Technician Relationship Specialty Start Date End Date Deja Gonzalez MD [address] [place] [phone] PCP - General Family Medicine 08/18/23
--- OUTSIDE RECORDS SUMMARY | 2025-03-07 16:15 | XMS_ITS | Encounter Summary ---
Author Organization [employer] Address [address] [place] [address] Care Team Providers Care Athletic Events Scorer Name Role Phone Deja Gonzalez MD Primary Care Provider [phone] Encounter Details Date Type Department Care Team ([facility] st Contact Info) Description 01/28/2025 Telephone [facility] MEDICINE [address] [place] [address] Deja Gonzalez MD [address] [place] [address] Social History Tobacco Use Types Packs/Day Years [...] Description 03/18/2025 11:30 AM EDT Office Visit [facility] MEDICINE [address] [place] [address] Deja Gonzalez MD [address] [place] [address] documented as of this encounter Visit Diagnoses Not on filedocumented in this encounter Care Teams Athletic Events Scorer Relationship Specialty Start Date End Date Deja Gonzalez MD [address] [place] [phone] PCP - General Family Medicine 08/18/23 documented as of this encounter
--- OUTSIDE RECORDS SUMMARY | 2025-03-07 16:15 | XMS_ITS | Encounter Summary ---
Author Organization [employer] Address [address] [facility] [address]t [place] [address] Care Team Providers Care Railroad Operating Engineer Name Role Phone Deja Gonzalez MD Primary Care Provider [phone] Encounter Details Date Type Department Care Team ([facility] st Contact Info) Description 12/26/2023 Telephone [facility] MEDICINE [address] [place] [address] Deja Gonzalez MD [address] [place] [address] Social History Tobacco Use Types Packs/Day Years [...] Description 03/18/2025 11:30 AM EDT Office Visit [facility] MEDICINE [address] [place] [address] Deja Gonzalez MD [address] [place] [address] documented as of this encounter Visit Diagnoses Not on filedocumented in this encounter Care Teams Railroad Operating Engineer Relationship Specialty Start Date End Date Deja Gonzalez MD [address] [place] [address] PCP - General Family Medicine 08/18/23 documented as of this encounter
--- OUTSIDE RECORDS SUMMARY | 2025-03-07 16:15 | XMS_ITS | Encounter Summary ---
Author Organization [employer] [facility] Address [address] [place] [address] [address] [place] [address] Care Team Providers Care Weaver Tire Cord Name Role Phone Deja Gonzalez MD Primary Care Provider [phone] Encounter Details Date Type Department Care Team (Late Contact Info) Description 10/13/[address] [facility] MEDICINE [address] [place] [address] [phone] Deja Gonzalez MD [address] [place] [address] [phone] Social History Tobacco Use Types Packs/Day Years [...] Department Care Team (Late Contact Info) Description 03/18/2025 11:30 AM EDT Office Visit [facility] MEDICINE [address] [place] [address] [phone] Deja Gonzalez MD [address] [place] [address] [phone] documented as of this encounter Visit Diagnoses Not on filedocumented in this encounter Care Teams Weaver Tire Cord Relationship Specialty Start Date End Date Deja Gonzalez MD [address] [place] [phone] PCP - General Family Medicine 08/18/23 documented as of this encounter
--- OUTSIDE RECORDS SUMMARY | 2025-03-07 16:15 | XMS_ITS | Patient Health Record ---
Demographics Address [address] [place] [address] Preferred Language Unknown Marital Status Unknown Evangelical Affiliation Unknown Race Ethnic Group or Author Organization [facility] Address [address] [place] [address] Support Name Relationship Address Phone Sandrita Hintonpe Emergency Contact [address] [place] [address] SHER FRANCISCO Guarantor Unknown Care Team Providers Care Dairy Specialist Name Role Phone Siomara Sears Primary Care Provider UnavailIsmael De Jesus Unavailable [phone] Reason For Referral No Information Medications Medication [...] Problem Status W/U Status Risk Notes Problem [id number] Esophageal dysphagia (R13.10) Active confirmed Plan Of Treatment Future Test Test Name Order Date UPPER GI ENDOSCOPY [place] DILATION OF ESOPH 04/12/2017 Insurance Providers Payer Name Payer Address Payer Phone Subscriber Number Group Number Insured Name Patient Relationship to Insured Coverage Start Date Coverage End Date MEDICAID OF Fair value [address] [place] [address] [id number] SHER FRANCISCO Self - patient is the insured Medical (General) History Medical History History ICD Code NIDDM Hypertension Denies MD,CVA,Lung disease,renal disease BPH GERD Hyperlipidemia Chronic hepatitis C--he is s eeing a different physician in [place] for that on for an initial appointment--Genotype 1A Negative ETT in March 2017 Surgical History Surgery Date(Month/Year) Right inguinal hernia Lipoma
--- OUTSIDE RECORDS SUMMARY | 2025-03-07 16:15 | XMS_ITS | Clinical Summary ---
Author Organization [facility] Address [address] [address] Phone Care Team Providers Care Food Mixer Assembler Name Role Phone Unavailable Primary Care Provider [...] DEPRESSION SCREENING 1966 SMOKING Hx and SMOKELESS TOBACCO SCREENING 1967 HEPATITIS C SCREENING 1972 COLOGUARD 1999 COLONOSCOPY 1999 COLORECTAL CANCER SCREENING 1999 FIT TEST 1999 FOBT 1999 SIGMOIDOSCOPY 1999 VIRTUAL COLONOSCOPY 1999 PNEUMOCOCCAL VACCINES (50+ years) (1 of 1 - PCV) 2004 ZOSTER VACCINES (2 of 3) 07/27/2017 06/01/2017 INFLUENZA VACCINE (#1) 2025 0, 04/26/2017 COVID-19 VACCINE (1 - 2023-2 5 season) 2025 RSV VACCINE (1 - 1-dose 75+ series) [...] It is not the complete legal health record.[facility]
--- OUTSIDE RECORDS SUMMARY | 2025-03-07 16:15 | XMS_ITS | Encounter Summary ---
Author Organization [facility] [facility] Address [address] [place] [address] 7 [place] [address] Care Team Providers Care Forensic Accountant Name Role Phone Deja Gonzalez MD Primary Care Provider [phone] Encounter Details Date Type Department Care Team (Late Contact Info) Description 08/24/2023 Orders Only [facility] MEDICINE [address] [place] [phone] Deja Gonzalez MD [address] [place] [address] [phone] Social History Tobacco Use Types Packs/Day Years [...] Description 03/18/2025 11:30 AM EDT Office Visit [facility] MEDICINE [address] [place] [phone] Deja Gonzalez MD [address] [place] [address] [phone] documented as of this encounter Visit Diagnoses Not on filedocumented in this encounter Care Teams Forensic Accountant Relationship Specialty Start Date End Date Deja Gonzalez MD [address] [place] [phone] PCP - General Family Medicine 08/18/23 documented as of this encounter
--- OUTSIDE RECORDS SUMMARY | 2025-03-07 16:15 | XMS_ITS | Encounter Summary ---
Author Organization [employer] Address [address] [facility] [address] [place] [address] Care Team Providers Care Heating And Ventilating Worker Name Role Phone Deja Gonzalez MD Primary Care Provider [phone] Reason for Visit * Reason Onset Date Comments Med Refill 10/13/2023 Encounter Details Date Type Department Care Team ([facility] st Contact Info) Description 10/13/2023 Telephone [facility] [address] [place] [phone] Deja Gonzalez MD [address] [place] [address] Med Refill Social History Tobacco Use Types [...] 12:45 PM EDT Medication was sent to [facility] on 10/05/23. * Telephone Encounter - Felton Ponce - 10/13/2023 12:39 PM EDT TC from pt requesting medication refill. Medications needing refill: melatonin 10 MG tablet To be sent to: [facility] [place]. documented in this encounter Plan of Treatment Upcoming Encounters Date Type Department Care Team (Late st Contact Info) Description 03/18/2025 11:30 AM EDT Office Visit [facility] [address] [place] [address] Deja Gonzalez MD [address] [place], [place] [phone] documented as of this encounter Visit Diagnoses Not on filedocumented in this encounter Care Teams Heating And Ventilating Worker Relationship Specialty Start Date End Date Deja Gonzalez MD [address] [place] [phone] PCP - General Family Medicine 08/18/23 documented as of this encounter
== END 2025-03-07 16:23 | disposition home or self-care (01) ==
LOC: HO.HUSH 15:12
PROVIDERS: PCP Family Medicine; Visit Provider Urology
DX: N40.1 Benign prostatic hyperplasia with lower urinary tract symptoms (principal); N20.0 Calculus of kidney; Z13.9 Encounter for screening, unspecified
CPT/HCPCS: 99213

== ENCOUNTER → 2025-03-07 15:11 | Outpatient (BNVA) | payer OTHER, SELFPAY | PROVIDERS: PCP Family Medicine; Visit Provider Urology | DX: N40.1 Benign prostatic hyperplasia with lower urinary tract symptoms (principal); N20.0 Calculus of kidney | CPT/HCPCS: 81003; 99212 ==